=== PATIENT | male | born 1985 | race Caucasian/White ===

== ENCOUNTER 2016-07-14 17:34 | Emergency (ER) | payer OTHER ==
--- NOTE | 2016-07-14 18:14 | ED CLINICAL REPORT ---
Clinical Report - Physicians/Mid Levels [facility] [address] [place] [address] 07/14/2016 17:37 Patient: JAILENE HUDSON Time Seen: 17:39 Jul 14 2016. Arrived- By private vehicle. Historian- patient. HISTORY OF PRESENT ILLNESS Chief Complaint: FLANK PAIN. 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 The patient has had nausea. No vomiting or diarrhea. (flank pain over the last 2 days, with hematuria , history of similar with nephrolithiasis in the past. Has outpatient CT ordered, hearing pain. Patient drove himself here, does not her right arm. Taking motrin at home, not relieving his pain. No prior required procedures for nephrolithiasis. No diarrhea. NO trauma. NO sob/ chest pain/ cough, no recent illness. No fevers.). Similar symptoms previously: REVIEW OF SYSTEMS No constipation, black stools, hematemesis, difficulty with urination or pain with urination. No urinary frequency, fever, headache or sore throat. All systems otherwise negative, except as recorded above. PAST HISTORY Problems: Back Pain. Nephrolithiasis. Additional Surgeries: Appendectomy. Medications: Ibuprofen Oral. Flexaril. Allergies: Demerol. SOCIAL HISTORY Alcohol use. History of drug use: marijuana. ADDITIONAL NOTES The nursing notes have been reviewed. PHYSICAL EXAM Vital Signs: 07/14/2016 17:56 BP: 143/81. HR: 135. RR: 18. O2 saturation: 99%. Temp: 98.2 F. Appearance: Alert. Appears to be in pain. Patient in mild distress. Eyes: Eyes normal inspection. ENT: Ears normal. Nose normal. Pharynx normal. CVS: Tachycardia. Heart sounds normal. Respiratory: No respiratory distress. Breath sounds normal. No decreased air movement. Abdomen: Soft and nontender. No mass. No abdominal tenderness. Back: Normal inspection. No CVA tenderness. Skin: Skin warm. Neuro: Oriented X 3. LABS, X-RAYS, AND EKG Laboratory Tests: UA-Culture if indicated: (MARC: 07/14/2016 17:55) ( MsgRcvd 07/14/2016 18:07) Final results Test Result Flag Units (Reference) URINE COLOR JAKE URINE APPEARANCE CLOUDY URINE GLUCOSE NEGATIVE (NEGATIVE) URINE BILIRUBIN ICTOTEST NEGATIVE (NEGATIVE) URINE KETONE TRACE (NEGATIVE) URINE SPECIFIC GRAVITY 1.025 (1.010-1.030) URINE PH 5.5 (5.0-8.0) URINE PROTEIN TRACE (NEGATIVE) URINE UROBILINOGEN 0.2 EU/dL (0.2-1.0) URINE NITRITE NEGATIVE (NEGATIVE) URINE BLOOD 3+ (NEGATIVE) URINE LEUK ESTERASE NEGATIVE (NEGATIVE) URINE RBC 25-50 rbc/hpf (0-1) URINE WBC RARE wbc/hpf (0-1) URINE EPITHELIAL CELLS RARE EPI/hpf (0-5) URINE BACTERIA NONE SEEN (NONE SEEN) URINE COMMENT CULT NOT INDICATED URINE CULTURES ARE SET-UP BASED ON THE FOLLOWING CRITERIA:POSITIVE NITRITEPOSITIVE LEUKOCYTE ESTERASEGREATER THAN 10 WHITE BLOOD CELLSMODERATE (2+) OR GREATER BACTERIA CBC w Diff: (MARC: 07/14/2016 17:55) ( [facility] 07/14/[place] 18:03) Final results Test Result Flag Units (Reference) WHITE BLOOD COUNT 8.8 K/uL (4.5-11.5) RED BLOOD COUNT 5.33 M/uL (4.50-5.90) HEMOGLOBIN 15.6 gm/dL (13.5-17.5) HEMATOCRIT 47.1 % (41.0-53.0) MEAN CELL VOLUME 88 fL (80-100) MEAN CORPUSCULAR HGB 29 pg (26-34) MEAN CORPUSCULAR HGB CONC 33 g/dL (31-37) RED CELL DISTRIBUTION WIDTH 14.2 % (11.6-14.8) PLATELET COUNT 325 K/uL (150-400) NEUTROPHIL % 69.5 % (50-75) LYMPH % 21.5 L % (25-40) MONO % 6.3 % (3-14) EOSINOPHIL % 2.4 % (0-4) BASOPHIL % 0.3 % (0-2) BMP: (MARC: 07/14/2016 17:55) ( [facility] 07/14/2016 18:09) Final results Test Result Flag Units (Reference) GLUCOSE 99 mg/dL (70-110) BUN 15 mg/dL (7-18) CREATININE 0.9 mg/dL (0.6-1.3) Estimated GFR >60 mL/min Estimated GFR- >60 mL/min Note: Persistent reduction over 3 months in eGFR<60 mL/min/1.73 m2 defines CKD. Patients with eGFR values>=60 mL/min/1.73 m2 may also have CKD if evidence ofpersistent proteinuria. Additional information may be foundat www.kidney.org. SODIUM 144 mmol/L (136-145) POTASSIUM 3.7 mmol/L (3.5-5.1) CHLORIDE 107 mmol/L (98-107) CARBON DIOXIDE 26 mmol/L (21-32) CALCIUM 9.0 mg/dL (8.5-10.1) . PROGRESS AND PROCEDURES Course of Care: 115 hr after iv toradol 30 mg Pt with no signs of pyelo/ no signs of septic stone. Offered ct he would prefer to keep his ct appt for the , and frank good f/u. Does desire pain meds, which seems appropriate in this patient, given acute hematuria w/ ho similar. abd soft, non tender. Good renal function. Pt does admit to drinking significant amts of monster drinks daily. Patient is stable. Symptoms better. Patient/family counseled. Differential Diagnosis: I considered gastric etiology, gastritis, acute appendicitis, mesenteric lymphadenitis, diverticulitis, small bowel obstruction, intraabdominal abscess, ascites, urinary tract infection, cystitis, prostatitis and urinary obstruction as a possible cause of abdominal pain in this patient. This is a partial list of diagnoses considered. Disposition: Discharged. CLINICAL IMPRESSION Right renal colic with calculus with hematuria. Hypertension. INSTRUCTIONS Drink plenty of fluids. Prescription Medications: Zofran (orally disintegrating tablets) 4 mg: take 1 orally every 6 hours for 3 days as needed for nausea. Dispense fifteen (15). No refill. Substitution is permissible. Percocet 5 mg/325 mg: take 1 tablet orally every 6 hours as needed for pain. Dispense twenty-five (25). No refill. Substitution is permissible. Flomax 0.4 mg: take 1 orally every 24 hours. Dispense fifteen (15). No refills. Substitution is permissible. Follow-up: Follow up with a specialist. (Electronically signed by Kenyatta Forde P.A.-C 07/14/2016 18:35)
--- NOTE | 2016-07-14 18:14 | ED NURSING NOTES ---
Clinical Report - Nurses [facility] [address] [place] [address] 07/14/2016 17:37 Patient: JAILENE HUDSON TRIAGE Triage time 1745. Acuity: LEVEL 3. Chief Complaint: URINARY RETENTION, TESTICULAR PAIN and (r flank pain). Alert. No acute distress. (in pain). --17:59 Christina Melendez 17:56 07/14/16. BP: 143/81. HR: 135. RR: 18. O2 saturation: 99%. Temp: 98.2 F. Pain level now 8/10. --17:59 Christina Melendez. Weight: 95.2 kg. Height/Length: 67 inches. BMI: 32.9. --17:55 Christina Melendez. Medications Flexaril. --17:57 Christina Melendez Ibuprofen Oral. --17:57 Christina Melendez. Allergies Demerol. --17:57 Christina Melendez. History Arrived by private vehicle. Historian: patient. Onset. (2 days ago). 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 SOCIAL HX: Occasional alcohol use. History of drug use: marijuana. --17:59 Christina Melendez. PROBLEMS: Back Pain. Nephrolithiasis. --17:58 Christina Melendez. ADDITIONAL SURGERIES: Appendectomy. --17:58 Christina Melendez. Interventions ID band on patient. To treatment room. --17:59 Christina Melendez. PHYSICAL ASSESSMENT Ambulatory to room. Patient gowned. GENERAL / NEURO / PSYCH: Alert. Oriented X 4. Appears in pain. HEENT: Mucous membranes are pink. RESPIRATORY: Respirations not labored. Breath sounds within normal limits. CVS: Cardiac rhythm: sinus tachycardia. Capillary refill less than 2 seconds. GI / : Abdomen soft and nontender. Bowel sounds within normal limits. SKIN: Skin is warm and dry. --18:00 Christina Melendez. NURSING PROGRESS NOTES 18:00 07/14/2016 Site #1 started via IV in the right antecubital space with an 20g angiocath, with aseptic technique and good blood return; one attempt. Blood drawn: rainbow set. Labeled in the presence of the patient and sent to the lab. Saline lock flushed with 10 mL saline. --18:00 Christina Melendez 18:17 07/14/2016 Toradol IVP 30 mg given. via site #1. Allergies verified and confirmed 5 rights. IV patency established. IV site checked: no pain, redness, or swelling. IV flushed thoroughly pre- and post-medication administration. IVP given by RN. --18:17 Christina Melendez 18:31 07/14/16. BP: 127/75. HR: 111. RR: 18. O2 saturation: 96%. Pain level now 6/10. --18:32 Christina Melendez. DISPOSITION / DISCHARGE 18:40 07/14/2016 Site #1 removed upon discharge. Pressure dressing applied. --18:40 Christina Melendez Departure time: 1840. Condition at departure: improved and stable. No learning barriers present. Discharge instructions provided and reviewed with the patient. Reviewed medication(s). Patient verbalized understanding. Written instructions provided in Italian. The patient was discharged by the physician retirement assistant. He was discharged home. He left the Emergency Department ambulatory and via private vehicle. Patient driving. --18:41 Christina Melendez. Locked/Released at 07/14/2016 18:42 by Christina Melendez,
--- NOTE | 2016-07-14 18:14 | ED ORDER SUMMARY ---
..... Patient: JAILENE HUDSON OrderSheet [facility] VisitID: [id number] [address] [place] [address] 31y, M Registration Date/Time: 07/14/2016 ORDER SHEET Weight: 95.2 kg Allergies: Demerol GENERAL ORDERS: UA-Culture if indicated Urgent (17:49 07/14/2016 EKoroleva P.A.-C) (Ack 17:59 LTapper) (18:01 EBonham) CBC w Diff Urgent (17:55 07/14/2016 EKoroleva P.A.-C) (Ack 17:59 LTapper) (18:01 EBonham) BMP Urgent (17:55 07/14/2016 EKoroleva P.A.-C) (Ack 17:59 [facility]) ([facility] Vitals (18:15 07/14/2016 EKoroleva P.A.-C) (18:[facility] MEDICATION ORDERS: IV FLUIDS: Toradol IV 30 mg (NOW) (17:55 07/14/2016 EKoroleva P.A.-C) (18:[facility] IV Saline Lock (17:55 07/14/2016 EKoroleva P.A.-C) (18:00 [facility] ORDER SHEET NOTES: [Electronically signed by Kenyatta FordeAMegha-Mary (18:35 07/14/2016)] [Electronically signed by Christina Melendez (18:42 07/14/2016)] [Electronically locked/signed by Christina Melendez (18:42 07/14/2016)]
--- NOTE | 2016-07-14 18:14 | ED CLINICAL REPORT ---
Clinical Report - Physicians/Mid Levels [facility] [address] [place] [address] 07/14/2016 17:37 Patient: JAILENE HUDSON Time Seen: 17:39 Jul 14 2016. Arrived- By private vehicle. Historian- patient. HISTORY OF PRESENT ILLNESS Chief Complaint: FLANK PAIN. 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 The patient has had nausea. No vomiting or diarrhea. (flank pain over the last 2 days, with hematuria , history of similar with nephrolithiasis in the past. Has outpatient CT ordered, hearing pain. Patient drove himself here, does not her right arm. Taking motrin at home, not relieving his pain. No prior required procedures for nephrolithiasis. No diarrhea. NO trauma. NO sob/ chest pain/ cough, no recent illness. No fevers.). Similar symptoms previously: REVIEW OF SYSTEMS No constipation, black stools, hematemesis, difficulty with urination or pain with urination. No urinary frequency, fever, headache or sore throat. All systems otherwise negative, except as recorded above. PAST HISTORY Problems: Back Pain. Nephrolithiasis. Additional Surgeries: Appendectomy. Medications: Ibuprofen Oral. Flexaril. Allergies: Demerol. SOCIAL HISTORY Alcohol use. History of drug use: marijuana. ADDITIONAL NOTES The nursing notes have been reviewed. PHYSICAL EXAM Vital Signs: 07/14/2016 17:56 BP: 143/81. HR: 135. RR: 18. O2 saturation: 99%. Temp: 98.2 F. Appearance: Alert. Appears to be in pain. Patient in mild distress. Eyes: Eyes normal inspection. ENT: Ears normal. Nose normal. Pharynx normal. CVS: Tachycardia. Heart sounds normal. Respiratory: No respiratory distress. Breath sounds normal. No decreased air movement. Abdomen: Soft and nontender. No mass. No abdominal tenderness. Back: Normal inspection. No CVA tenderness. Skin: Skin warm. Neuro: Oriented X 3. LABS, X-RAYS, AND EKG Laboratory Tests: UA-Culture if indicated: (MARC: 07/14/2016 17:55) ( MsgRcvd 07/14/2016 18:07) Final results Test Result Flag Units (Reference) URINE COLOR JAKE URINE APPEARANCE CLOUDY URINE GLUCOSE NEGATIVE (NEGATIVE) URINE BILIRUBIN ICTOTEST NEGATIVE (NEGATIVE) URINE KETONE TRACE (NEGATIVE) URINE SPECIFIC GRAVITY 1.025 (1.010-1.030) URINE PH 5.5 (5.0-8.0) URINE PROTEIN TRACE (NEGATIVE) URINE UROBILINOGEN 0.2 EU/dL (0.2-1.0) URINE NITRITE NEGATIVE (NEGATIVE) URINE BLOOD 3+ (NEGATIVE) URINE LEUK ESTERASE NEGATIVE (NEGATIVE) URINE RBC 25-50 rbc/hpf (0-1) URINE WBC RARE wbc/hpf (0-1) URINE EPITHELIAL CELLS RARE EPI/hpf (0-5) URINE BACTERIA NONE SEEN (NONE SEEN) URINE COMMENT CULT NOT INDICATED URINE CULTURES ARE SET-UP BASED ON THE FOLLOWING CRITERIA:POSITIVE NITRITEPOSITIVE LEUKOCYTE ESTERASEGREATER THAN 10 WHITE BLOOD CELLSMODERATE (2+) OR GREATER BACTERIA CBC w Diff: (MARC: 07/14/2016 17:55) ( [facility] [place] [place] 18:03) Final results Test Result Flag Units (Reference) WHITE BLOOD COUNT 8.8 K/uL (4.5-11.5) RED BLOOD COUNT 5.33 M/uL (4.50-5.90) HEMOGLOBIN 15.6 gm/dL (13.5-17.5) HEMATOCRIT 47.1 % (41.0-53.0) MEAN CELL VOLUME 88 fL (80-100) MEAN CORPUSCULAR HGB 29 pg (26-34) MEAN CORPUSCULAR HGB CONC 33 g/dL (31-37) RED CELL DISTRIBUTION WIDTH 14.2 % (11.6-14.8) PLATELET COUNT 325 K/uL (150-400) NEUTROPHIL % 69.5 % (50-75) LYMPH % 21.5 L % (25-40) MONO % 6.3 % (3-14) EOSINOPHIL % 2.4 % (0-4) BASOPHIL % 0.3 % (0-2) BMP: (MARC: 07/14/2016 17:55) ( [facility] 07/14/2016 18:09) Final results Test Result Flag Units (Reference) GLUCOSE 99 mg/dL (70-110) BUN 15 mg/dL (7-18) CREATININE 0.9 mg/dL (0.6-1.3) Estimated GFR >60 mL/min Estimated GFR- >60 mL/min Note: Persistent reduction over 3 months in eGFR<60 mL/min/1.73 m2 defines CKD. Patients with eGFR values>=60 mL/min/1.73 m2 may also have CKD if evidence ofpersistent proteinuria. Additional information may be foundat www.kidney.org. SODIUM 144 mmol/L (136-145) POTASSIUM 3.7 mmol/L (3.5-5.1) CHLORIDE 107 mmol/L (98-107) CARBON DIOXIDE 26 mmol/L (21-32) CALCIUM 9.0 mg/dL (8.5-10.1) . PROGRESS AND PROCEDURES Course of Care: 115 hr after iv toradol 30 mg Pt with no signs of pyelo/ no signs of septic stone. Offered ct he would prefer to keep his ct appt for the , and frank good f/u. Does desire pain meds, which seems appropriate in this patient, given acute hematuria w/ ho similar. abd soft, non tender. Good renal function. Pt does admit to drinking significant amts of monster drinks daily. Patient is stable. Symptoms better. Patient/family counseled. Differential Diagnosis: I considered gastric etiology, gastritis, acute appendicitis, mesenteric lymphadenitis, diverticulitis, small bowel obstruction, intraabdominal abscess, ascites, urinary tract infection, cystitis, prostatitis and urinary obstruction as a possible cause of abdominal pain in this patient. This is a partial list of diagnoses considered. Disposition: Discharged. CLINICAL IMPRESSION Right renal colic with calculus with hematuria. Hypertension. INSTRUCTIONS Drink plenty of fluids. Prescription Medications: Zofran (orally disintegrating tablets) 4 mg: take 1 orally every 6 hours for 3 days as needed for nausea. Dispense fifteen (15). No refill. Substitution is permissible. Percocet 5 mg/325 mg: take 1 tablet orally every 6 hours as needed for pain. Dispense twenty-five (25). No refill. Substitution is permissible. Flomax 0.4 mg: take 1 orally every 24 hours. Dispense fifteen (15). No refills. Substitution is permissible. Follow-up: Follow up with a specialist. (Electronically signed by Kenyatta Forde P.A.-C 07/14/2016 18:35)
--- NOTE | 2016-07-14 18:14 | ED ORDER SUMMARY ---
..... Patient: JAILENE HUDSON OrderSheet [facility] VisitID: [id number] [address] [place] [address] 31y, M Registration Date/Time: 07/14/2016 ORDER SHEET Weight: 95.2 kg Allergies: Demerol GENERAL ORDERS: UA-Culture if indicated Urgent (17:49 07/14/2016 EKoroleva P.A.-C) (Ack 17:59 LTapper) (18:01 EBonham) CBC w Diff Urgent (17:55 07/14/2016 EKoroleva P.A.-C) (Ack 17:59 LTapper) (18:01 EBonham) BMP Urgent (17:55 07/14/2016 EKoroleva P.A.-C) (Ack 17:59 LTapper) ([facility] Vitals (18:15 07/14/2016 EKoroleva P.A.-C) (18:18 [facility] MEDICATION ORDERS: IV FLUIDS: Toradol IV 30 mg (NOW) (17:55 07/14/2016 EKoroleva P.A.-C) ([facility] IV Saline Lock (17:55 07/14/2016 EKoroleva P.A.-C) (18:00 [facility] ORDER SHEET NOTES: [Electronically signed by Kenyatta FordeAMegha-Mary (18:35 07/14/2016)] [Electronically signed by Christina Melendez (18:42 07/14/2016)] [Electronically locked/signed by Christina Melendez (18:42 07/14/2016)]
--- NOTE | 2016-07-14 18:14 | ED NURSING NOTES ---
Clinical Report - Nurses [facility] [address] [place] [address] 07/14/2016 17:37 Patient: JAILENE HUDSON TRIAGE Triage time 1745. Acuity: LEVEL 3. Chief Complaint: URINARY RETENTION, TESTICULAR PAIN and (r flank pain). Alert. No acute distress. (in pain). --17:59 Christina Melendez 17:56 07/14/16. BP: 143/81. HR: 135. RR: 18. O2 saturation: 99%. Temp: 98.2 F. Pain level now 8/10. --17:59 Christina Melendez. Weight: 95.2 kg. Height/Length: 67 inches. BMI: 32.9. --17:55 Christina Melendez. Medications Flexaril. --17:57 Christina Melendez Ibuprofen Oral. --17:57 Christina Melendez. Allergies Demerol. --17:57 Christina Melendez. History Arrived by private vehicle. Historian: patient. Onset. (2 days ago). 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 SOCIAL HX: Occasional alcohol use. History of drug use: marijuana. --17:59 Christina Melendez. PROBLEMS: Back Pain. Nephrolithiasis. --17:58 Christina Melendez. ADDITIONAL SURGERIES: Appendectomy. --17:58 Christina Melendez. Interventions ID band on patient. To treatment room. --17:59 Christina Melendez. PHYSICAL ASSESSMENT Ambulatory to room. Patient gowned. GENERAL / NEURO / PSYCH: Alert. Oriented X 4. Appears in pain. HEENT: Mucous membranes are pink. RESPIRATORY: Respirations not labored. Breath sounds within normal limits. CVS: Cardiac rhythm: sinus tachycardia. Capillary refill less than 2 seconds. GI / : Abdomen soft and nontender. Bowel sounds within normal limits. SKIN: Skin is warm and dry. --18:00 Christina Melendez. NURSING PROGRESS NOTES 18:00 07/14/2016 Site #1 started via IV in the right antecubital space with an 20g angiocath, with aseptic technique and good blood return; one attempt. Blood drawn: rainbow set. Labeled in the presence of the patient and sent to the lab. Saline lock flushed with 10 mL saline. --18:00 Christina Melendez 18:17 07/14/2016 Toradol IVP 30 mg given. via site #1. Allergies verified and confirmed 5 rights. IV patency established. IV site checked: no pain, redness, or swelling. IV flushed thoroughly pre- and post-medication administration. IVP given by RN. --18:17 Christina Melendez 18:31 07/14/16. BP: 127/75. HR: 111. RR: 18. O2 saturation: 96%. Pain level now 6/10. --18:32 Christina Melendez. DISPOSITION / DISCHARGE 18:40 07/14/2016 Site #1 removed upon discharge. Pressure dressing applied. --18:40 Christina Melendez Departure time: 1840. Condition at departure: improved and stable. No learning barriers present. Discharge instructions provided and reviewed with the patient. Reviewed medication(s). Patient verbalized understanding. Written instructions provided in Yoruba. The patient was discharged by the physician urology physician assistant. He was discharged home. He left the Emergency Department ambulatory and via private vehicle. Patient driving. --18:41 Christina Melendez. Locked/Released at 07/14/2016 18:42 by Christina Melendez,
--- NOTE | 2016-07-14 18:42 | ED MED RECONCILIATION SUMMARY ---
Patient: JAILENE HUDSON Medication Reconciliation Report [facility] VisitID: [id number] [address] [place] [address] 31y, M Registration Date/Time: 07/14/2016 Weight: 95.2 kg Height/Length: 67 in. BMI: 32.9 ALLERGIES: Demerol The patient's Home Medications are listed below: THE FOLLOWING MEDICATIONS NEED TO BE RECONCILED: Flexaril Ibuprofen Oral The source(s) of the original Home Medication information: Not obtained. The following Medications were given to the patient in the Emergency Department: Toradol [IVP] IVP 30 mg, administered: 07/14/2016 6:17:00 PM The following Medications were prescribed to the patient: Zofran (orally disintegrating tablets) 4 mg: take 1 orally every 6 hours for 3 days as needed for nausea. Dispense fifteen (15). No refill. Substitution is permissible. -- Kenyatta Forde, P.A.-C Percocet 5 mg/325 mg: take 1 tablet orally every 6 hours as needed for pain. Dispense twenty-five (25). No refill. Substitution is permissible. -- Kenyatta Forde, P.A.-C Flomax 0.4 mg: take 1 orally every 24 hours. Dispense fifteen (15). No refills. Substitution is permissible. -- Kenyatta Forde, P.A.-C
--- NOTE | 2016-07-14 18:42 | ED MAR SUMMARY ---
..... Medication Administration Record [facility] [address] [place] [address] Patient: JAILENE HUDSON Visit ID: [id number] 31y, M Weight: 95.2 kg Height/Length: 67 in BMI: 32.9 ALLERGIES: Demerol Given 18:17 07/14/2016 Christina Melendez, Medication Administered: TORADOL [IVP], Dose: 30 mg IVP, Site: #1 right AC. Medication Ordered: Toradol IV 30 mg (NOW).
--- NOTE | 2016-07-14 18:42 | ED MED RECONCILIATION SUMMARY ---
Patient: JAILENE HUDSON Medication Reconciliation Report [facility] VisitID: [id number] [address] [place] [address] 31y, M Registration Date/Time: 07/14/2016 Weight: 95.2 kg Height/Length: 67 in. BMI: 32.9 ALLERGIES: Demerol The patient's Home Medications are listed below: THE FOLLOWING MEDICATIONS NEED TO BE RECONCILED: Flexaril Ibuprofen Oral The source(s) of the original Home Medication information: Not obtained. The following Medications were given to the patient in the Emergency Department: Toradol [IVP] IVP 30 mg, administered: 07/14/2016 6:17:00 PM The following Medications were prescribed to the patient: Zofran (orally disintegrating tablets) 4 mg: take 1 orally every 6 hours for 3 days as needed for nausea. Dispense fifteen (15). No refill. Substitution is permissible. -- Kenyatta Forde, P.A.-C Percocet 5 mg/325 mg: take 1 tablet orally every 6 hours as needed for pain. Dispense twenty-five (25). No refill. Substitution is permissible. -- Kenyatta Forde, P.A.-C Flomax 0.4 mg: take 1 orally every 24 hours. Dispense fifteen (15). No refills. Substitution is permissible. -- Kenyatta Forde, P.A.-C
--- NOTE | 2016-07-14 18:42 | ED MAR SUMMARY ---
..... Medication Administration Record [facility] [address] [place] [place] [address] Patient: JAILENE HUDSON Visit ID: [id number] 31y, M Weight: 95.2 kg Height/Length: 67 in BMI: 32.9 ALLERGIES: Demerol Given 18:17 07/14/2016 Christina Melendez, Medication Administered: TORADOL [IVP], Dose: 30 mg IVP, Site: #1 right AC. Medication Ordered: Toradol IV 30 mg (NOW).
--- NOTE | 2016-07-14 18:42 | ED DISCHARGE INSTRUCTIONS ---
Patient: JAILENE HUDSON General Instructions [facility] VisitID: [id number] [address] [place] [address] 31y, M Registration Date/Time: 07/14/2016 Right renal colic with calculus with hematuria. Hypertension. INSTRUCTIONS Drink plenty of fluids. Prescription Medications: Zofran (orally disintegrating tablets) 4 mg: take 1 orally every 6 hours for 3 days as needed for nausea. Dispense fifteen (15). No refill. Substitution is permissible. Percocet 5 mg/325 mg: take 1 tablet orally every 6 hours as needed for pain. Dispense twenty-five (25). No refill. Substitution is permissible. Flomax 0.4 mg: take 1 orally every 24 hours. Dispense fifteen (15). No refills. Substitution is permissible. Follow-up: Follow up with a specialist. ADDITIONAL INFORMATION Kidney Stone (W/ Colic) The sharp cramping pain and nausea/vomiting that you have is due to a small stone which has formed in the kidney and is now passing down a narrow tube (ureter) on its way to your bladder. Once it reaches your bladder, the pain will stop. The stone may pass in your urine stream in one piece. [The size may be 1/16" to 1/4" (1-6mm)]. Or, the stone may also break up into maida fragments which you may not even notice. Once you have had a kidney stone, you are at risk for developing another one in the future. Home Care: Drink plenty of fluids (at least 8 to 10 glasses of water a day). Most stones will pass on their own, but may take from a few hours to a few days. Sometimes the stone is too large to pass by itself and special methods will have to be used to remove the stone. Each time you urinate, do so in a jar. Pour the urine from the jar through the strainer and into the toilet. Continue doing this until 24 hours after your pain stops. By then, if there was a kidney stone, it should pass from your bladder. Some stones dissolve into sand-like particles and pass right through the strainer. In that case, you wont ever see a stone. Save any stone that you find in the strainer and bring it to your doctor for analysis. It may be possible to prevent certain types of stones from forming. Therefore, it is important to know what kind of stone you have. Try to stay as active as possible since this will help the stone pass. Do not stay in bed unless your pain prevents you from getting up. You may notice a red, pink or brown color to your urine. This is normal while passing a kidney stone. Follow Up with your doctor or return to this facility if the pain lasts more than 48 hours. Get Prompt Medical Attention if any of the following occur: Pain that is not controlled by the medicine given Repeated vomiting or unable to keep down fluids Weakness, dizziness or fainting Fever of 100.4F (38C) or higher, or as directed by your healthcare provider Passage of solid red or brown urine (can't see through it) or urine with lots of blood clots Unable to pass urine for 8 hours and increasing bladder pressure Ondansetron Hydrochloride Oral tablet What is this medicine? ONDANSETRON (on WANG se gary) is used to treat nausea and vomiting caused by chemotherapy. It is also used to prevent or treat nausea and vomiting after surgery. How should I use this medicine? Take this medicine by mouth with a glass of water. Follow the directions on your prescription label. Take your doses at regular intervals. Do not take your medicine more often than directed. Talk to your civil engineering designer regarding the use of this medicine in children. Special care may be needed. What side effects may I notice from receiving this medicine? Side effects that you should report to your doctor or health behavioral health care manager as soon as possible: allergic reactions like skin rash, itching or hives, swelling of the face, lips or tongue breathing problems dizziness fast or irregular heartbeat feeling faint or lightheaded, falls fever and chills swelling of the hands or feet tightness in the chest Side effects that usually do not require medical attention (report to your doctor or health behavioral health care manager if they continue or are bothersome): constipation or diarrhea headache What may interact with this medicine? Do not take this medicine with any of the following medications: -apomorphine -cisapride -dofetilide -dronedarone -pimozide -thioridazine -ziprasidone This medicine may also interact with the following medications: -carbamazepine -phenytoin -rifampicin -tramadol -other medicines that prolong the QT interval (cause an abnormal heart rhythm) What if I miss a dose? If you miss a dose, take it as soon as you can. If it is almost time for your next dose, take only that dose. Do not take double or extra doses. Where should I keep my medicine? Keep out of the reach of children. Store between 2 and 30 degrees C (36 and 86 degrees F). Throw away any unused medicine after the expiration date. What should I tell my health care provider before I take this medicine? They need to know if you have any of these conditions: heart disease history of irregular heartbeat liver disease low levels of magnesium or potassium in the blood an unusual or allergic reaction to ondansetron, granisetron, other medicines, foods, dyes, or preservatives or trying to get breast-feeding What should I watch for while using this medicine? Check with your doctor or health behavioral health care manager right away if you have any sign of an allergic reaction. Oxycodone Hydrochloride, Acetaminophen Oral tablet What is this medicine? ACETAMINOPHEN; OXYCODONE (a set a JACK lauren fen; ox i KOE done) is a pain reliever. It is used to treat mild to moderate pain. How should I use this medicine? Take this medicine by mouth with a full glass of water. Follow the directions on the prescription label. Take your medicine at regular intervals. Do not take your medicine more often than directed. Talk to your civil engineering designer regarding the use of this medicine in children. Special care may be needed. Patients over 65 years old may have a stronger reaction and need a smaller dose. What side effects may I notice from receiving this medicine? Side effects that you should report to your doctor or health behavioral health care manager as soon as possible: allergic reactions like skin rash, itching or hives, swelling of the face, lips, or tongue breathing difficulties, wheezing confusion light headedness or fainting spells severe stomach pain yellowing of the skin or the whites of the eyes Side effects that usually do not require medical attention (report to your doctor or health behavioral health care manager if they continue or are bothersome): dizziness drowsiness nausea vomiting What may interact with this medicine? alcohol antihistamines barbiturates like amobarbital, butalbital, butabarbital, methohexital, pentobarbital, phenobarbital, thiopental, and secobarbital benztropine drugs for bladder problems like solifenacin, trospium, oxybutynin, tolterodine, hyoscyamine, and methscopolamine drugs for breathing problems like ipratropium and tiotropium drugs for certain stomach or intestine problems like propantheline, homatropine methylbromide, glycopyrrolate, atropine, belladonna, and dicyclomine general anesthetics like etomidate, ketamine, nitrous oxide, propofol, desflurane, enflurane, halothane, isoflurane, and sevoflurane medicines for depression, anxiety, or psychotic disturbances medicines for sleep muscle relaxants naltrexone narcotic medicines (opiates) for pain phenothiazines like perphenazine, thioridazine, chlorpromazine, mesoridazine, fluphenazine, prochlorperazine, promazine, and trifluoperazine scopolamine tramadol trihexyphenidyl What if I miss a dose? If you miss a dose, take it as soon as you can. If it is almost time for your next dose, take only that dose. Do not take double or extra doses. Where should I keep my medicine? Keep out of the reach of children. This medicine can be abused. Keep your medicine in a safe place to protect it from theft. Do not share this medicine with anyone. Selling or giving away this medicine is dangerous and against the law. Store at room temperature between 20 and 25 degrees C (68 and 77 degrees F). Keep container tightly closed. Protect from light. This medicine may cause accidental overdose and if it is taken by other adults, children, or pets. Flush any unused medicine down the toilet to reduce the chance of harm. Do not use the medicine after the expiration date. What should I tell my health care provider before I take this medicine? They need to know if you have any of these conditions: brain tumor Crohn's disease, inflammatory bowel disease, or ulcerative colitis drink more than 3 alcohol containing drinks per day drug abuse or addiction head injury heart or circulation problems kidney disease or problems going to the bathroom liver disease lung disease, asthma, or breathing problems an unusual or allergic reaction to acetaminophen, oxycodone, other opioid analgesics, other medicines, foods, dyes, or preservatives or trying to get breast-feeding What should I watch for while using this medicine? Tell your doctor or health behavioral health care manager if your pain does not go away, if it gets worse, or if you have new or a different type of pain. You may develop tolerance to the medicine. Tolerance means that you will need a higher dose of the medication for pain relief. Tolerance is normal and is expected if you take this medicine for a long time. Do not suddenly stop taking your medicine because you may develop a severe reaction. Your body becomes used to the medicine. This does NOT mean you are addicted. Addiction is a behavior related to getting and using a drug for a non-medical reason. If you have pain, you have a medical reason to take pain medicine. Your doctor will tell you how much medicine to take. If your doctor wants you to stop the medicine, the dose will be slowly lowered over time to avoid any side effects. You may get drowsy or dizzy. Do not drive, use machinery, or do anything that needs mental alertness until you know how this medicine affects you. Do not stand or sit up quickly, especially if you are an older patient. This reduces the risk of dizzy or fainting spells. Alcohol may interfere with the effect of this medicine. Avoid alcoholic drinks. There are different types of narcotic medicines (opiates) for pain. If you take more than one type at the same time, you may have more side effects. Give your health care provider a list of all medicines you use. Your doctor will tell you how much medicine to take. Do not take more medicine than directed. Call emergency for help if you have problems breathing. The medicine will cause constipation. Try to have a bowel movement at least every 2 to 3 days. If you do not have a bowel movement for 3 days, call your doctor or health behavioral health care manager. Do not take Tylenol (acetaminophen) or medicines that have acetaminophen with this medicine. Too much acetaminophen can be very dangerous. Many nonprescription medicines contain acetaminophen. Always read the labels carefully to avoid taking more acetaminophen. You have been given the following additional information: Kidney Stone W/ Colic Ondansetron Hydrochloride Oral tablet Oxycodone Hydrochloride, Acetaminophen Oral tablet (Electronically signed by Kenyatta Forde P.A.-C 07/14/2016 18:35)
== END 2016-07-14 18:40 | disposition home or self-care (01) ==
LOC: ED SRH 17:34 → EDBD 17:36 → ED SRH 17:36
DX: N20.0 Calculus of kidney (principal); N23 Unspecified renal colic; R31.9 Hematuria, unspecified; I10 Essential (primary) hypertension; Z88.5 Allergy status to narcotic agent
CPT/HCPCS: 90004; 90047; 95059

== ENCOUNTER 2016-10-03 17:47 | Emergency (ER) | payer OTHER ==
--- NOTE | 2016-10-03 19:01 | ED CLINICAL REPORT ---
Clinical Report - Physicians/Mid Levels [facility] [address] [place] [address] 10/03/2016 17:59 Patient: JAILENE HUDSON Time Seen: 1813Apr 2016. Arrived- By private vehicle. Historian- patient. HISTORY OF PRESENT ILLNESS Chief Complaint: FLANK PAIN. This started today and is still present. The problem is described as moderate. No penile discharge, discomfort with urination, urinary frequency or genital lesion. Able to void. (She reports is her nephrolithiasis, reports right flank pain over the last day. Denies any urgency or frequency. At times pain radiates to his testicle. He has had some nausea, no emesis. History of similar. Reports no prior history of requiring procedures for his nephrolithiasis usually pass on their own, with assistance of pain medication, Flomax. He should take Motrin prior to arrival.). REVIEW OF SYSTEMS No fever, chills or abdominal pain. He has had flank pain. The patient has had hematuria. All systems otherwise negative, except as recorded above. PAST HISTORY Problems: Hypertension. Renal Colic. Back Pain. Nephrolithiasis. Additional Surgeries: Appendectomy. Ear drum reconstruction Right. Medications: Methocarbamol Oral. Ibuprofen Oral. Allergies: Demerol. SOCIAL HISTORY Smoker- current status unknown. Alcohol use. No drug use. ADDITIONAL NOTES The nursing notes have been reviewed. PHYSICAL EXAM Vital Signs: 10/03/2016 18:07 BP: 154/91. HR: 107. RR: 18. O2 saturation: 98%. Temp: 97.5 F. Pain level now: 10/10. Appearance: Alert. No acute distress. ENT: Normal external inspection. Pharynx normal. Neck: Neck supple. CVS: Heart sounds normal. Respiratory: No respiratory distress. Breath sounds normal. Abdomen: Soft and nontender. No organomegaly. No mass. No abdominal tenderness or organomegaly. The bowel sounds are not abnormal. Back: No CVA tenderness. : Testes descended. Tenderness (at r. testicle, no swelling, no cord/ epdidymis swelling). (Chaperoned exam with RN.). Neuro: Oriented X 3. LABS, X-RAYS, AND EKG Laboratory Tests: UA-Culture if indicated: (MARC: 10/03/2016 18:17) ( MsgRcvd 10/03/2016 18:39) Final results Test Result Flag Units (Reference) URINE COLOR RED URINE APPEARANCE CLOUDY URINE GLUCOSE NEGATIVE (NEGATIVE) URINE BILIRUBIN NEGATIVE (NEGATIVE) URINE KETONE NEGATIVE (NEGATIVE) URINE SPECIFIC GRAVITY 1.020 (1.010-1.030) URINE PH 7.5 (5.0-8.0) URINE PROTEIN TRACE (NEGATIVE) URINE UROBILINOGEN 0.2 EU/dL (0.2-1.0) URINE NITRITE NEGATIVE (NEGATIVE) URINE BLOOD 3+ (NEGATIVE) URINE LEUK ESTERASE NEGATIVE (NEGATIVE) URINE RBC >100 rbc/hpf (0-1) URINE WBC 0-1 wbc/hpf (0-1) URINE EPITHELIAL CELLS RARE EPI/hpf (0-5) URINE BACTERIA NONE SEEN (NONE SEEN) URINE COMMENT CULT NOT INDICATED URINE CULTURES ARE SET-UP BASED ON THE FOLLOWING CRITERIA:POSITIVE NITRITEPOSITIVE LEUKOCYTE ESTERASEGREATER THAN 10 WHITE BLOOD CELLSMODERATE (2+) OR GREATER BACTERIA . PROGRESS AND PROCEDURES Course of Care: Nonreproducible pain for patient. No distress in the ER, wishes to go home and drive himself. Surgeries, history of the same, patient is very familiar with his nephrolithiasis. No signs of acute pyloric. Patient to follow up outpatient as needed. 10/03/2016 19:15 BP: 145/87. HR: 78. RR: 14. O2 saturation: 100%. Temp: 98 F. Pain level now: 7/10. Patient is stable. Symptoms better. Patient/family counseled. Disposition: Discharged. CLINICAL IMPRESSION Right nephrolithiasis with renal colic. INSTRUCTIONS Drink plenty of fluids. Prescription Medications: Zofran (orally disintegrating tablets) 4 mg: every 6 hours for 3 days. Dispense fifteen (15). No refill. Substitution is permissible. Percocet 5 mg/325 mg: take 1 tablet orally every 6 hours as needed for pain. Dispense twenty-five (25). No refill. Substitution is permissible. Flomax 0.4 mg: every 24 hours. Dispense ten (10). No refills. Substitution is permissible. (next dose 10/04 night) Follow-up: Follow up with a urologist. (Electronically signed by Kenyatta Forde P.A.-C 10/03/2016 22:36)
--- NOTE | 2016-10-03 19:01 | ED NURSING NOTES ---
Clinical Report - Nurses [facility] [address] [place] [address] 10/03/2016 17:59 Patient: JAILENE HUDSON TRIAGE Triage time 1808 PM. Acuity: LEVEL 3. Chief Complaint: PAIN WITH URINATION and TESTICULAR PAIN. Alert. No acute distress. SVETLANA COMA SCORE: [place] Coma Scale: 15- eyes open spontaneously (4); best verbal response- oriented x 4 (5); best motor response- obeys commands (6). --18:19 Keyona Nicolas R.N. 18:07 10/03/16. BP: 154/91 (regular adult cuff) taken on the left arm, while sitting. HR: 107. RR: 18. O2 saturation: 98%. Temp: 97.5 F (oral). Pain level now: 03/21. --18:19 Keyona Nicolas R.N. Weight: 102 kg stated. Height/Length: 67 inches Per Patient. BMI: 35.3. --18:08 Keyona Nicolas R.N. Medications Ibuprofen Oral. --18:10 Keyona Nicolas R.N. Methocarbamol Oral. --18:15 Keyona Nicolas R.N. The following entry was struck by Keyona Nicolas R.N., 18:15 (10/03/16) Reason - other. <<STRICKEN ENTRY-- Flexaril. --18:10 Keyona Nicolas R.N. --END STRIKE>>. Allergies Demerol. --18:10 Keyona Nicolas R.N. Medication/allergy information source: the patient. --18:19 Keyona Nicolas R.N. History Arrived by private vehicle. Primary physician (Dr. Umesh Mcadams). ( Pt states on Monday morning when he urinated it burn, pt has a hx of kidney stones in the past. Has had difficulty and hurts upon urinating and noted to have "pink urine". Denies fevers, n/v). Onset. (monday). He has had testicular pain, and urgency of urination. No fever or inguinal swelling. Able to void. 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 PAST MEDICAL HX: Immunizations: up-to-date. SOCIAL HX: Current every day heavy tobacco smoker (cigarette)- less than 1 pack per day. Alcohol use. No drug use. No infectious disease exposure. ABUSE ASSESSMENT: No report of abuse. SELF HARM ASSESSMENT: A self harm assessment was performed. The patient answered "no" to the question "Do you have thoughts of harming or killing yourself?" and "Have you recently had thoughts about harming or killing others?". FALL RISK ASSESSMENT: Fall risk assessment completed. No fall risk identified. NUTRITIONAL RISK ASSESSMENT: The nutritional risk assessment revealed no deficiencies. FUNCTIONAL ASSESSMENT: Functional assessment: no impairments noted. LEARNING NEEDS ASSESSMENT: The learning needs assessment revealed no barriers. SKIN INTEGRITY ASSESSMENT: Skin integrity risk assessment completed. No skin integrity risk identified. --18:19 Keyona Nicolas R.N. PROBLEMS: Hypertension. Renal Colic. Back Pain. Nephrolithiasis. --18:10 Keyona Nicolas R.N. ADDITIONAL SURGERIES: Appendectomy. --18:10 Keyona Nicolas R.N. Ear drum reconstruction Right. --18:16 Keyona Nicolas R.N. Interventions ID band on patient. --18:19 Keyona Nicolas R.N. PHYSICAL ASSESSMENT Ambulatory to room. GENERAL / NEURO / PSYCH: Alert. Oriented X 4. HEENT: Mucous membranes are pink. RESPIRATORY: Respirations not labored. Breath sounds within normal limits. GI / : Abdomen soft. Bowel sounds within normal limits. No abdominal distention. Pain with urination. He has had frequency of urination. SKIN: Skin is warm and dry. --18:19 Keyona Nicolas R.N. NURSING PROGRESS NOTES The initial plan of care for this patient has been created This plan of care was discussed with the patient. Patient gowned. Warming measures: blanket applied. Reassurance given. Patient identifiers checked. Call light placed in reach. Side rails up x 1. Bed placed in lowest position. Brakes of bed on. Patient ready for evaluation- PA notified. --18:20 Keyona Nicolas R.N. 18:27 10/03/2016 Tylenol (Acetaminophen) PO Capsules 1000 mg given. Allergies verified and confirmed 5 rights. --18:27 Keyona Nicolas R.N. 18:27 10/03/2016 Zofran ODT (Ondansetron) PO Tablets 8 mg given. Allergies verified and confirmed 5 rights. --18:27 Keyona Nicolas R.N. 18:28 10/03/2016 Flomax (Tamsulosin HCl) PO Tablets 0.4 mg given. Allergies verified and confirmed 5 rights. --18:28 Keyona Nicolas R.N. 18:35 10/03/16. Hospital Product Specialist provided for the genital exam by the physician. --18:35 Addison Emmanuel R.N. 19:00 10/03/2016 Tylenol PO Response: no adverse reaction. --19:22 Keyona Nicolas R.N. 19:00 10/03/2016 Zofran ODT PO Response: no adverse reaction. --19:22 Keyona Nicolas R.N. 19:00 10/03/2016 Flomax PO Response: no adverse reaction. --19:23 Keyona Nicolas R.N. DISPOSITION / DISCHARGE Departure time: 1924 PM. Condition at departure: stable. The goals identified in the patient's plan of care were met. No learning barriers present. Discharge instructions provided and reviewed with the patient. Reviewed medication(s) side effects, precautions, dosing and course information. Prescription(s) given to the patient. Activity restrictions (light lifting) reviewed. Patient verbalized understanding. Written instructions provided in Kazakh. ( Pt given strainer and instructions for urine/stones. Verbalizes understanding on follow-up and prescription.). The patient was discharged by the physician housing assistant. He was discharged home and unaccompanied at time of discharge. He left the Emergency Department ambulatory and via private vehicle. Patient driving. FALL RISK ASSESSMENT: Fall risk assessment completed. No fall risk identified. --19:22 Keyona Nicolas R.N. 19:15 10/03/16. BP: 145/87. HR: 78. RR: 14. O2 saturation: 100% on room air. Temp: 98 F (oral). Pain level now: 12/19. --19:22 Keyona Nicolas R.N. Locked/Released at 10/03/2016 19:23 by Keyona Nicolas R.N.
--- NOTE | 2016-10-03 19:01 | ED NURSING NOTES ---
Clinical Report - Nurses Formerly [facility] [address] [place] [address] 10/03/2016 17:59 Patient: JAILENE HUDSON TRIAGE Triage time 1808 PM. Acuity: LEVEL 3. Chief Complaint: PAIN WITH URINATION and TESTICULAR PAIN. Alert. No acute distress. SVETLANA COMA SCORE: Brewster Coma Scale: 15- eyes open spontaneously (4); best verbal response- oriented x 4 (5); best motor response- obeys commands (6). --18:19 Keyona Nicolas R.N. 18:07 10/03/16. BP: 154/91 (regular adult cuff) taken on the left arm, while sitting. HR: 107. RR: 18. O2 saturation: 98%. Temp: 97.5 F (oral). Pain level now: 03/21. --18:19 Keyona Nicolas R.N. Weight: 102 kg stated. Height/Length: 67 inches Per Patient. BMI: 35.3. --18:08 Keyona Nicolas R.N. Medications Ibuprofen Oral. --18:10 Keyona Nicolas R.N. Methocarbamol Oral. --18:15 Keyona Nicolas R.N. The following entry was struck by Keyona Nicolas R.N., 18:15 (10/03/16) Reason - other. <<STRICKEN ENTRY-- Flexaril. --18:10 Keyona Nicolas R.N. --END STRIKE>>. Allergies Demerol. --18:10 Keyona Nicolas R.N. Medication/allergy information source: the patient. --18:19 Keyona Nicolas R.N. History Arrived by private vehicle. Primary physician (Dr. Umesh Mcadams). ( Pt states on Monday morning when he urinated it burn, pt has a hx of kidney stones in the past. Has had difficulty and hurts upon urinating and noted to have "pink urine". Denies fevers, n/v). Onset. (monday). He has had testicular pain, and urgency of urination. No fever or inguinal swelling. Able to void. 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 PAST MEDICAL HX: Immunizations: up-to-date. SOCIAL HX: Current every day heavy tobacco smoker (cigarette)- less than 1 pack per day. Alcohol use. No drug use. No infectious disease exposure. ABUSE ASSESSMENT: No report of abuse. SELF HARM ASSESSMENT: A self harm assessment was performed. The patient answered "no" to the question "Do you have thoughts of harming or killing yourself?" and "Have you recently had thoughts about harming or killing others?". FALL RISK ASSESSMENT: Fall risk assessment completed. No fall risk identified. NUTRITIONAL RISK ASSESSMENT: The nutritional risk assessment revealed no deficiencies. FUNCTIONAL ASSESSMENT: Functional assessment: no impairments noted. LEARNING NEEDS ASSESSMENT: The learning needs assessment revealed no barriers. SKIN INTEGRITY ASSESSMENT: Skin integrity risk assessment completed. No skin integrity risk identified. --18:19 Keyona Nicolas R.N. PROBLEMS: Hypertension. Renal Colic. Back Pain. Nephrolithiasis. --18:10 Keyona Nicolas R.N. ADDITIONAL SURGERIES: Appendectomy. --18:10 Keyona Nicolas R.N. Ear drum reconstruction Right. --18:16 Keyona Nicolas R.N. Interventions ID band on patient. --18:19 Keyona Nicolas R.N. PHYSICAL ASSESSMENT Ambulatory to room. GENERAL / NEURO / PSYCH: Alert. Oriented X 4. HEENT: Mucous membranes are pink. RESPIRATORY: Respirations not labored. Breath sounds within normal limits. GI / : Abdomen soft. Bowel sounds within normal limits. No abdominal distention. Pain with urination. He has had frequency of urination. SKIN: Skin is warm and dry. --18:19 Keyona Nicolas R.N. NURSING PROGRESS NOTES The initial plan of care for this patient has been created This plan of care was discussed with the patient. Patient gowned. Warming measures: blanket applied. Reassurance given. Patient identifiers checked. Call light placed in reach. Side rails up x 1. Bed placed in lowest position. Brakes of bed on. Patient ready for evaluation- PA notified. --18:20 Keyona Nicolas R.N. 18:27 10/03/2016 Tylenol (Acetaminophen) PO Capsules 1000 mg given. Allergies verified and confirmed 5 rights. --18:27 Keyona Nicolas R.N. 18:27 10/03/2016 Zofran ODT (Ondansetron) PO Tablets 8 mg given. Allergies verified and confirmed 5 rights. --18:27 Keyona Nicolas R.N. 18:28 10/03/2016 Flomax (Tamsulosin HCl) PO Tablets 0.4 mg given. Allergies verified and confirmed 5 rights. --18:28 Keyona Nicolas R.N. 18:35 10/03/16. Bag Shop Worker provided for the genital exam by the physician. --18:35 Addison Emmaunel R.N. 19:00 10/03/2016 Tylenol PO Response: no adverse reaction. --19:22 Keyona Nicolas R.N. 19:00 10/03/2016 Zofran ODT PO Response: no adverse reaction. --19:22 Keyona Nicolas R.N. 19:00 10/03/2016 Flomax PO Response: no adverse reaction. --19:23 Keyona Nicolas R.N. DISPOSITION / DISCHARGE Departure time: 1924 PM. Condition at departure: stable. The goals identified in the patient's plan of care were met. No learning barriers present. Discharge instructions provided and reviewed with the patient. Reviewed medication(s) side effects, precautions, dosing and course information. Prescription(s) given to the patient. Activity restrictions (light lifting) reviewed. Patient verbalized understanding. Written instructions provided in Italian. ( Pt given strainer and instructions for urine/stones. Verbalizes understanding on follow-up and prescription.). The patient was discharged by the physician assistant executive housekeeper. He was discharged home and unaccompanied at time of discharge. He left the Emergency Department ambulatory and via private vehicle. Patient driving. FALL RISK ASSESSMENT: Fall risk assessment completed. No fall risk identified. --19:22 Keyona Nicolas R.N. 19:15 10/03/16. BP: 145/87. HR: 78. RR: 14. O2 saturation: 100% on room air. Temp: 98 F (oral). Pain level now: 12/19. --19:22 Keyona Nicolas R.N. Locked/Released at 10/03/2016 19:23 by Keyona Nicolas R.N.
--- NOTE | 2016-10-03 19:01 | ED ORDER SUMMARY ---
..... Patient: JAILENE HUDSON OrderSheet [facility] VisitID: [id number] [address] [place] [address] 31y, M Registration Date/Time: 10/03/2016 ORDER SHEET Weight: 102.0 kg (stated) Allergies: Demerol GENERAL ORDERS: UA-Culture if indicated Urgent (18:13 10/03/2016 EKoroleva P.A.-C) (Ack 18:18 Toña) (18:20 EHassan R.N.) MEDICATION ORDERS: Tylenol PO 1,000 mg (NOW) (18:12 10/03/2016 EKoroleva P.A.-C) (18:27 EHassan R.N.) Zofran ODT PO 8 mg (NOW) (18:12 10/03/2016 EKoroleva P.A.-C) (18:27 EHassan R.N.) Flomax PO 0.4 mg (Do not crush or chew, NOW) (18:12 10/03/2016 EKoroleva P.A.-C) (18:28 EHassan R.N.) IV FLUIDS: ORDER SHEET NOTES: [Electronically signed by Keyona Nicolas R.N. (19:23 10/03/2016)] [Electronically signed by Kenyatta Forde P.A.-C (22:36 10/03/2016)] [Electronically locked/signed by Keyona Nicolas R.N. (19:23 10/03/2016)]
--- NOTE | 2016-10-03 19:01 | ED ORDER SUMMARY ---
..... Patient: JAILENE HUDSON OrderSheet [facility] VisitID: [id number] [address] [place] [address] 31y, M Registration Date/Time: 10/03/2016 ORDER SHEET Weight: 102.0 kg (stated) Allergies: Demerol GENERAL ORDERS: UA-Culture if indicated Urgent (18:13 10/03/2016 EKoroleva P.A.-C) (Ack 18:18 Toña) (18:20 EHassan R.N.) MEDICATION ORDERS: Tylenol PO 1,000 mg (NOW) (18:12 10/03/2016 EKoroleva P.A.-C) (18:27 EHassan R.N.) Zofran ODT PO 8 mg (NOW) (18:12 10/03/2016 EKoroleva P.A.-C) (18:27 EHassan R.N.) Flomax PO 0.4 mg (Do not crush or chew, NOW) (18:12 10/03/2016 EKoroleva P.A.-C) (18:28 EHassan R.N.) IV FLUIDS: ORDER SHEET NOTES: [Electronically signed by Keyona Nicolas R.N. (19:23 10/03/2016)] [Electronically signed by Kenyatta Forde P.A.-C (22:36 10/03/2016)] [Electronically locked/signed by Keyona Nicolas R.N. (19:23 10/03/2016)]
--- NOTE | 2016-10-03 22:36 | ED DISCHARGE INSTRUCTIONS ---
Patient: JAILENE HUDSON General Instructions [facility] VisitID: [id number] [place] [address] 31y, M Registration Date/Time: 10/03/2016 Right nephrolithiasis with renal colic. INSTRUCTIONS Drink plenty of fluids. Prescription Medications: Zofran (orally disintegrating tablets) 4 mg: every 6 hours for 3 days. Dispense fifteen (15). No refill. Substitution is permissible. Percocet 5 mg/325 mg: take 1 tablet orally every 6 hours as needed for pain. Dispense twenty-five (25). No refill. Substitution is permissible. Flomax 0.4 mg: every 24 hours. Dispense ten (10). No refills. Substitution is permissible. (next dose 10/04 night) Follow-up: Follow up with a urologist. ADDITIONAL INFORMATION Kidney Stone (W/ Colic) The sharp cramping pain and nausea/vomiting that you have is due to a small stone which has formed in the kidney and is now passing down a narrow tube (ureter) on its way to your bladder. Once it reaches your bladder, the pain will stop. The stone may pass in your urine stream in one piece. [The size may be 1/16" to 1/4" (1-6mm)]. Or, the stone may also break up into maida fragments which you may not even notice. Once you have had a kidney stone, you are at risk for developing another one in the future. Home Care: Drink plenty of fluids (at least 8 to 10 glasses of water a day). Most stones will pass on their own, but may take from a few hours to a few days. Sometimes the stone is too large to pass by itself and special methods will have to be used to remove the stone. Each time you urinate, do so in a jar. Pour the urine from the jar through the strainer and into the toilet. Continue doing this until 24 hours after your pain stops. By then, if there was a kidney stone, it should pass from your bladder. Some stones dissolve into sand-like particles and pass right through the strainer. In that case, you wont ever see a stone. Save any stone that you find in the strainer and bring it to your doctor for analysis. It may be possible to prevent certain types of stones from forming. Therefore, it is important to know what kind of stone you have. Try to stay as active as possible since this will help the stone pass. Do not stay in bed unless your pain prevents you from getting up. You may notice a red, pink or brown color to your urine. This is normal while passing a kidney stone. Follow Up with your doctor or return to this facility if the pain lasts more than 48 hours. Get Prompt Medical Attention if any of the following occur: Pain that is not controlled by the medicine given Repeated vomiting or unable to keep down fluids Weakness, dizziness or fainting Fever of 100.4F (38C) or higher, or as directed by your healthcare provider Passage of solid red or brown urine (can't see through it) or urine with lots of blood clots Unable to pass urine for 8 hours and increasing bladder pressure Blood In The Urine Blood in the urine ("hematuria") has many possible causes. If it occurs after an injury (such as a car accident or fall), it is most often a sign of bruising to the kidney or bladder. Common medical causes of blood in the urine include urinary tract infection, kidney stone, inflammation, tumors, or certain other diseases of the kidney or bladder. Menstruation can cause blood to appear in the urine sample, although it is not coming from the urinary tract. If only a trace amount of blood is present, it will show up on the urine test, even though the urine may be yellow and not pink or red. This may occur with any of the above conditions, as well as heavy exercise or high fever. In this case, your doctor may want to repeat the urine test on another day. This will show if the blood is still present. If so, then other tests can be done to find out the cause. Home Care: If your urine does not appear bloody (pink, brown or red) then you do not need to restrict your activity in any way. If you can see blood in your urine, rest and avoid heavy exertion until your next exam. Do not use aspirin or anti-inflammatory medicine like ibuprofen (Motrin, Advil) or naproxen (Naprosyn, Aleve). These thin the blood and may increase bleeding. Follow Up with your doctor or as advised by our staff. If you were injured and had blood in your urine, you should have a repeat urine test in 1-2 days. Contact your doctor or return to this facility for this test. [NOTE: A radiologist will review any X-rays that were taken. We will notify you of any new findings that may affect your care.] Get Prompt Medical Attention if any of the following occur: Bright red blood or blood clots in the urine (if a new symptom) Weakness, dizziness or fainting New groin, abdominal or back pain Fever of 100.4F (38C) or higher, or as directed by your healthcare provider Repeated vomiting Bleeding from nose, gums or easy bruising Ondansetron Hydrochloride Oral tablet What is this medicine? ONDANSETRON (on WANG se gary) is used to treat nausea and vomiting caused by chemotherapy. It is also used to prevent or treat nausea and vomiting after surgery. How should I use this medicine? Take this medicine by mouth with a glass of water. Follow the directions on your prescription label. Take your doses at regular intervals. Do not take your medicine more often than directed. Talk to your legislators regarding the use of this medicine in children. Special care may be needed. What side effects may I notice from receiving this medicine? Side effects that you should report to your doctor or health care administrative tech as soon as possible: allergic reactions like skin rash, itching or hives, swelling of the face, lips or tongue breathing problems dizziness fast or irregular heartbeat feeling faint or lightheaded, falls fever and chills swelling of the hands or feet tightness in the chest Side effects that usually do not require medical attention (report to your doctor or health care administrative tech if they continue or are bothersome): constipation or diarrhea headache What may interact with this medicine? Do not take this medicine with any of the following medications: -apomorphine -cisapride -dofetilide -dronedarone -pimozide -thioridazine -ziprasidone This medicine may also interact with the following medications: -carbamazepine -phenytoin -rifampicin -tramadol -other medicines that prolong the QT interval (cause an abnormal heart rhythm) What if I miss a dose? If you miss a dose, take it as soon as you can. If it is almost time for your next dose, take only that dose. Do not take double or extra doses. Where should I keep my medicine? Keep out of the reach of children. Store between 2 and 30 degrees C (36 and 86 degrees F). Throw away any unused medicine after the expiration date. What should I tell my health care provider before I take this medicine? They need to know if you have any of these conditions: heart disease history of irregular heartbeat liver disease low levels of magnesium or potassium in the blood an unusual or allergic reaction to ondansetron, granisetron, other medicines, foods, dyes, or preservatives or trying to get breast-feeding What should I watch for while using this medicine? Check with your doctor or health care administrative tech right away if you have any sign of an allergic reaction. Oxycodone Hydrochloride, Acetaminophen Oral tablet What is this medicine? ACETAMINOPHEN; OXYCODONE (a set a JACK lauren fen; ox i KOE done) is a pain reliever. It is used to treat mild to moderate pain. How should I use this medicine? Take this medicine by mouth with a full glass of water. Follow the directions on the prescription label. Take your medicine at regular intervals. Do not take your medicine more often than directed. Talk to your legislators regarding the use of this medicine in children. Special care may be needed. Patients over 65 years old may have a stronger reaction and need a smaller dose. What side effects may I notice from receiving this medicine? Side effects that you should report to your doctor or health care administrative tech as soon as possible: allergic reactions like skin rash, itching or hives, swelling of the face, lips, or tongue breathing difficulties, wheezing confusion light headedness or fainting spells severe stomach pain yellowing of the skin or the whites of the eyes Side effects that usually do not require medical attention (report to your doctor or health care administrative tech if they continue or are bothersome): dizziness drowsiness nausea vomiting What may interact with this medicine? alcohol antihistamines barbiturates like amobarbital, butalbital, butabarbital, methohexital, pentobarbital, phenobarbital, thiopental, and secobarbital benztropine drugs for bladder problems like solifenacin, trospium, oxybutynin, tolterodine, hyoscyamine, and methscopolamine drugs for breathing problems like ipratropium and tiotropium drugs for certain stomach or intestine problems like propantheline, homatropine methylbromide, glycopyrrolate, atropine, belladonna, and dicyclomine general anesthetics like etomidate, ketamine, nitrous oxide, propofol, desflurane, enflurane, halothane, isoflurane, and sevoflurane medicines for depression, anxiety, or psychotic disturbances medicines for sleep muscle relaxants naltrexone narcotic medicines (opiates) for pain phenothiazines like perphenazine, thioridazine, chlorpromazine, mesoridazine, fluphenazine, prochlorperazine, promazine, and trifluoperazine scopolamine tramadol trihexyphenidyl What if I miss a dose? If you miss a dose, take it as soon as you can. If it is almost time for your next dose, take only that dose. Do not take double or extra doses. Where should I keep my medicine? Keep out of the reach of children. This medicine can be abused. Keep your medicine in a safe place to protect it from theft. Do not share this medicine with anyone. Selling or giving away this medicine is dangerous and against the law. Store at room temperature between 20 and 25 degrees C (68 and 77 degrees F). Keep container tightly closed. Protect from light. This medicine may cause accidental overdose and if it is taken by other adults, children, or pets. Flush any unused medicine down the toilet to reduce the chance of harm. Do not use the medicine after the expiration date. What should I tell my health care provider before I take this medicine? They need to know if you have any of these conditions: brain tumor Crohn's disease, inflammatory bowel disease, or ulcerative colitis drink more than 3 alcohol containing drinks per day drug abuse or addiction head injury heart or circulation problems kidney disease or problems going to the bathroom liver disease lung disease, asthma, or breathing problems an unusual or allergic reaction to acetaminophen, oxycodone, other opioid analgesics, other medicines, foods, dyes, or preservatives or trying to get breast-feeding What should I watch for while using this medicine? Tell your doctor or health care administrative tech if your pain does not go away, if it gets worse, or if you have new or a different type of pain. You may develop tolerance to the medicine. Tolerance means that you will need a higher dose of the medication for pain relief. Tolerance is normal and is expected if you take this medicine for a long time. Do not suddenly stop taking your medicine because you may develop a severe reaction. Your body becomes used to the medicine. This does NOT mean you are addicted. Addiction is a behavior related to getting and using a drug for a non-medical reason. If you have pain, you have a medical reason to take pain medicine. Your doctor will tell you how much medicine to take. If your doctor wants you to stop the medicine, the dose will be slowly lowered over time to avoid any side effects. You may get drowsy or dizzy. Do not drive, use machinery, or do anything that needs mental alertness until you know how this medicine affects you. Do not stand or sit up quickly, especially if you are an older patient. This reduces the risk of dizzy or fainting spells. Alcohol may interfere with the effect of this medicine. Avoid alcoholic drinks. There are different types of narcotic medicines (opiates) for pain. If you take more than one type at the same time, you may have more side effects. Give your health care provider a list of all medicines you use. Your doctor will tell you how much medicine to take. Do not take more medicine than directed. Call emergency for help if you have problems breathing. The medicine will cause constipation. Try to have a bowel movement at least every 2 to 3 days. If you do not have a bowel movement for 3 days, call your doctor or health care administrative tech. Do not take Tylenol (acetaminophen) or medicines that have acetaminophen with this medicine. Too much acetaminophen can be very dangerous. Many nonprescription medicines contain acetaminophen. Always read the labels carefully to avoid taking more acetaminophen. You have been given the following additional information: Kidney Stone W/ Colic Hematuria Ondansetron Hydrochloride Oral tablet Oxycodone Hydrochloride, Acetaminophen Oral tablet (Electronically signed by Kenyatta Forde P.A.-C 10/03/2016 22:36)
--- NOTE | 2016-10-03 22:37 | ED MAR SUMMARY ---
..... Medication Administration Record [facility] [address] [place] [address] Patient: JAILENE HUDSON Visit ID: [id number] 31y, M Weight: 102.0 kg Height/Length: 67 in BMI: 35.3 ALLERGIES: Demerol Given 18:10/03/2016 Keyona Nicolas, RMeghaN. Medication Administered: TYLENOL [PO] (ACETAMINOPHEN), Dose: 1000 mg Capsules PO. Medication Ordered: Tylenol PO 1,000 mg (NOW). Given 18:10/03/2016 Keyona Nicolas, R.N. Medication Administered: ZOFRAN ODT [PO] (ONDANSETRON), Dose: 8 mg Tablets PO. Medication Ordered: Zofran ODT PO 8 mg (NOW). Given 18:10/03/2016 Keyona Nicolas, R.N. Medication Administered: FLOMAX [PO] (TAMSULOSIN HCL), Dose: 0.4 mg Tablets PO. Medication Ordered: Flomax PO 0.4 mg (Do not crush or chew, NOW).
--- NOTE | 2016-10-03 22:37 | ED MED RECONCILIATION SUMMARY ---
Patient: JAILENE HUDSON Medication Reconciliation Report [facility] VisitID: [id number] [address] [place] [address] 31y, M Registration Date/Time: 10/03/2016 Weight: 102.0 kg Height/Length: 67 in. BMI: 35.3 ALLERGIES: Demerol The patient's Home Medications are listed below: THE FOLLOWING MEDICATIONS NEED TO BE RECONCILED: Ibuprofen Oral Methocarbamol Oral The source(s) of the original Home Medication information: patient The following Medications were given to the patient in the Emergency Department: Tylenol [PO] PO 1000 mg, administered: 10/03/2016 6:27:00 PM Zofran ODT [PO] PO 8 mg, administered: 10/03/2016 6:27:00 PM Flomax [PO] PO 0.4 mg, administered: 10/03/2016 6:28:00 PM The following Medications were prescribed to the patient: Zofran (orally disintegrating tablets) 4 mg: every 6 hours for 3 days. Dispense fifteen (15). No refill. Substitution is permissible. -- Ivelisseolezakiya, Kenyatta, P.A.-C Percocet 5 mg/325 mg: take 1 tablet orally every 6 hours as needed for pain. Dispense twenty-five (25). No refill. Substitution is permissible. -- Kenyatta Forde, P.A.-C Flomax 0.4 mg: every 24 hours. Dispense ten (10). No refills. Substitution is permissible.(next dose 10/04 night) -- Eula, Kenyatta, P.A.-C
--- NOTE | 2016-10-03 22:37 | ED MAR SUMMARY ---
..... Medication Administration Record [facility] [address] [place] [address] Patient: JAILENE HUDSON Visit ID: [id number] 31y, M Weight: 102.0 kg Height/Length: 67 in BMI: 35.3 ALLERGIES: Demerol Given 18:10/03/2016 Keyona Nicolas, RMeghaN. Medication Administered: TYLENOL [PO] (ACETAMINOPHEN), Dose: 1000 mg Capsules PO. Medication Ordered: Tylenol PO 1,000 mg (NOW). Given 18:10/03/2016 Keyona Nicolas, R.N. Medication Administered: ZOFRAN ODT [PO] (ONDANSETRON), Dose: 8 mg Tablets PO. Medication Ordered: Zofran ODT PO 8 mg (NOW). Given 18:10/03/2016 Keyona Nicolas, R.N. Medication Administered: FLOMAX [PO] (TAMSULOSIN HCL), Dose: 0.4 mg Tablets PO. Medication Ordered: Flomax PO 0.4 mg (Do not crush or chew, NOW).
--- NOTE | 2016-10-03 22:37 | ED MED RECONCILIATION SUMMARY ---
Patient: JAILENE HUDSON Medication Reconciliation Report [facility] VisitID: [id number] [address] [place] [address] 31y, M Registration Date/Time: 10/03/2016 Weight: 102.0 kg Height/Length: 67 in. BMI: 35.3 ALLERGIES: Demerol The patient's Home Medications are listed below: THE FOLLOWING MEDICATIONS NEED TO BE RECONCILED: Ibuprofen Oral Methocarbamol Oral The source(s) of the original Home Medication information: patient The following Medications were given to the patient in the Emergency Department: Tylenol [PO] PO 1000 mg, administered: 10/03/2016 6:27:00 PM Zofran ODT [PO] PO 8 mg, administered: 10/03/2016 6:27:00 PM Flomax [PO] PO 0.4 mg, administered: 10/03/2016 6:28:00 PM The following Medications were prescribed to the patient: Zofran (orally disintegrating tablets) 4 mg: every 6 hours for 3 days. Dispense fifteen (15). No refill. Substitution is permissible. -- Ivelisseolezakiya, Kenyatta, P.A.-C Percocet 5 mg/325 mg: take 1 tablet orally every 6 hours as needed for pain. Dispense twenty-five (25). No refill. Substitution is permissible. -- Kenyatta Forde, P.A.-C Flomax 0.4 mg: every 24 hours. Dispense ten (10). No refills. Substitution is permissible.(next dose 10/04 night) -- Eula, Kenyatta, P.A.-C
== END 2016-10-03 19:23 | disposition home or self-care (01) ==
LOC: ED SRH 17:47
DX: N20.0 Calculus of kidney (principal); I10 Essential (primary) hypertension; F17.210 Nicotine dependence, cigarettes, uncomplicated; Z88.5 Allergy status to narcotic agent
CPT/HCPCS: 90004

== ENCOUNTER 2016-11-06 10:36 | Emergency (ER) | payer OTHER ==
--- NOTE | 2016-11-06 12:37 | ED CLINICAL REPORT ---
Clinical Report - Physicians/Mid Levels [facility] [address] [place] [address] 11/06/2016 10:36 Patient: JAILENE HUDSON Time Seen: 11:17. Arrived- By private vehicle. Historian- patient. HISTORY OF PRESENT ILLNESS Chief Complaint: DENTAL PAIN. This started several months ago and is still present. It was gradual in onset and has been waxing/waning. Pain described as severe. The patient has had toothache (right lower molar, left lower molar). (He had a dental exam and was supposed to get some work done then lost his insurance. He recently got state insurance and went to the dentist and he states that he has to have surgery and has the referral but can't have consultation until December.). REVIEW OF SYSTEMS No chills, fever, sweats, calf pain or chest pain. No cough, difficulty breathing, pedal edema, palpitations or abdominal pain. No constipation, diarrhea, nausea, vomiting or urinary problems. All systems otherwise negative, except as recorded above. SOCIAL HISTORY Current every day light tobacco smoker (cigarette)- less than 1/2 a pack per day. Occasional alcohol use. No drug use. FAMILY HISTORY No significant family medical history. ADDITIONAL NOTES The nursing notes have been reviewed. PHYSICAL EXAM Vital Signs: 11/06/2016 10:59 BP: 138/95. HR: 100. RR: 18. O2 saturation: 100%. Temp: 98.2 F. Have been reviewed. Appearance: Alert. Eyes: Pupils equal, round and reactive to light. ENT: Moderate dental tenderness of multiple teeth (lower right molars, lower left molars). Ears normal. Pharynx normal. Lips normal. Uvula midline. Neck: Trachea midline. No adenopathy. Thyroid normal. Neck supple. CVS: Normal heart rate and rhythm. Heart sounds normal. Respiratory: No respiratory distress. Breath sounds normal. Abdomen: Soft and nontender. No organomegaly. Skin: Normal skin color. No rash. Normal skin turgor. Extremities: Extremities exhibit normal ROM. Neuro: No motor deficit. No sensory deficit. PROGRESS AND PROCEDURES Course of Care: Patient is stable. Old medical records reviewed. Disposition: Discharged. Condition: stable. CLINICAL IMPRESSION Dental pain with an impacted tooth. INSTRUCTIONS Drink plenty of fluids. Warnings: Further evaluation is necessary. GENERAL WARNINGS: Return or contact your physician immediately if your condition worsens or changes unexpectedly, if not improving as expected, or if other problems arise. Your Current Medications: STOP TAKING THE FOLLOWING MEDICATIONS: Ibuprofen Oral. CONTINUE TAKING THE FOLLOWING MEDICATIONS: Acetaminophen Extra Strength Oral. Tramadol HCL Oral. Prescription Medications: Toradol 10 mg tablets: Take 1 tablet orally every 6 hours as needed. Dispense fifteen (15). No refills. Substitution is permissible. Follow-up: Follow up with a dentist as scheduled. (Electronically signed by Chuy Ruvalcaba MD 11/14/2016 9:31)
--- NOTE | 2016-11-06 12:37 | ED NURSING NOTES ---
Clinical Report - Nurses [facility] [address] [place] [address] 11/06/2016 10:36 [id number] Triage time 10:59 Nov 06 2016. Acuity: LEVEL 4. Chief Complaint: RIGHT LOWER and LEFT LOWER TOOTHACHE. MAVERICK COMA SCORE: Maverick Coma Scale: 15- eyes open spontaneously (4); best verbal response- oriented x 4 (5); best motor response- obeys commands (6). --11:06 Olga Michael R.N. 10:59 11/06/16. BP: 138/95. HR: 100. RR: 18. O2 saturation: 100%. Temp: 98.2 F. Pain level now 7/10. --11:06 Olga Michael R.N. Weight: 98.4 kg stated. Height/Length: 67 inches Per Patient. BMI: 34. --11:05 Olga Michael R.N. Medications Ibuprofen Oral. --11:02 Olga Michael R.N. Tramadol HCL Oral. --11:02 Olga Michael R.N. Acetaminophen Extra Strength Oral. --11:03 Olga Michael R.N. Allergies Demerol. --11:03 Olga Michael R.N. History Arrived by private vehicle. Historian: patient. ( So had a dental exam and was supposed to get some work done then lost his insurance. He recently got state insurance and went to the dentist and he states that he has to have surgery and has the referral but can't have consultation until December.). He has a dental appointment scheduled. He has had ear pain. No fever, hoarseness, mouth sores, sinus pain or facial pain. He has had a toothache. No swollen jaw. PAST MEDICAL HX: Abscess. No history of dental caries. No history of strep throat or mononucleosis. Immunizations: up-to-date. SOCIAL HX: Current every day light tobacco smoker (cigarette)- less than 1/2 a pack per day. Occasional alcohol use. No drug use. SELF HARM ASSESSMENT: A self harm assessment was performed. The patient answered "no" to the question "Have you recently felt down, depressed, or hopeless?" and "Do you have thoughts of harming or killing yourself?". FALL RISK ASSESSMENT: Fall risk assessment completed. No fall risk identified. NUTRITIONAL RISK ASSESSMENT: The nutritional risk assessment revealed no deficiencies. FUNCTIONAL ASSESSMENT: Functional assessment: no impairments noted. LEARNING NEEDS ASSESSMENT: The learning needs assessment revealed no barriers. ABUSE ASSESSMENT: Abuse assessment: (yes) The patient was asked "Do you feel safe in your home?". SKIN INTEGRITY ASSESSMENT: Skin integrity risk assessment completed. No skin integrity risk identified. --11: Olga Michael R.N. PROBLEMS: Hypertension. Renal Colic. Back Pain. Nephrolithiasis. --11: Olga Michael R.N. ADDITIONAL SURGERIES: Appendectomy. Ear drum reconstruction Right. --11: Olga Michael R.N. Interventions ID band on patient. --11: Olga Michael R.N. PHYSICAL ASSESSMENT Ambulatory to room. GENERAL / NEURO / PSYCH: Alert. Oriented X 4. Appears in no acute distress. HEENT: Pupils equal, round and reactive to light. Pharynx within normal limits. Voice within normal limits. No dental injury noted. Dental tenderness. Dental decay. Mucous membranes are pink. RESPIRATORY: Respirations not labored. CVS: Capillary refill less than 2 seconds. SKIN: Skin is warm and dry. Normal skin turgor. --11: Olga Michael R.N. NURSING PROGRESS NOTES The initial plan of care for this patient includes an assessment with efforts to address patient positioning, appropriate ambient lighting and comfortable environmental temperature. Pulse oximeter and NIBP monitor placed on patient. Reassurance given. Call light placed in reach. Side rails up x 1. Bed placed in lowest position. Brakes of bed on. --11: Olga Michael R.N. DISPOSITION / DISCHARGE Departure time: 12:52 Nov 06 2016. Condition at departure: unchanged. No learning barriers present. Discharge instructions provided and reviewed with the patient. Reviewed warnings. Reviewed medication(s). Treatments reviewed. Reviewed referrals. Patient verbalized understanding. Written instructions provided in Icelandic. The patient was discharged home. He left the Emergency Department ambulatory and via private vehicle. Patient driving. --12:52 Olga Michael R.N. 12:51 11/06/16. BP: 136/82. HR: 90. RR: 18. O2 saturation: 100%. Temp: 98.6 F. Pain level now 9/10. --12:52 Olga Michael R.N. Locked/Released at 11/06/2016 16:27 by Olga Michael R.N.
--- NOTE | 2016-11-06 12:37 | ED NURSING NOTES ---
Clinical Report - Nurses [facility] [address] [place] [address] 11/06/2016 10:36 [id number] Triage time 10:59 Nov 06 2016. Acuity: LEVEL 4. Chief Complaint: RIGHT LOWER and LEFT LOWER TOOTHACHE. MAVERICK COMA SCORE: Maverick Coma Scale: 15- eyes open spontaneously (4); best verbal response- oriented x 4 (5); best motor response- obeys commands (6). --11:06 Olga Michael R.N. 10:59 11/06/16. BP: 138/95. HR: 100. RR: 18. O2 saturation: 100%. Temp: 98.2 F. Pain level now 7/10. --11:06 lOga Michael R.N. Weight: 98.4 kg stated. Height/Length: 67 inches Per Patient. BMI: 34. --11:05 Olga Michael R.N. Medications Ibuprofen Oral. --11:02 Olga Michael R.N. Tramadol HCL Oral. --11:02 Olga Michael R.N. Acetaminophen Extra Strength Oral. --11:03 Olga Michael R.N. Allergies Demerol. --11:03 Olga Michael R.N. History Arrived by private vehicle. Historian: patient. ( So had a dental exam and was supposed to get some work done then lost his insurance. He recently got state insurance and went to the dentist and he states that he has to have surgery and has the referral but can't have consultation until December.). He has a dental appointment scheduled. He has had ear pain. No fever, hoarseness, mouth sores, sinus pain or facial pain. He has had a toothache. No swollen jaw. PAST MEDICAL HX: Abscess. No history of dental caries. No history of strep throat or mononucleosis. Immunizations: up-to-date. SOCIAL HX: Current every day light tobacco smoker (cigarette)- less than 1/2 a pack per day. Occasional alcohol use. No drug use. SELF HARM ASSESSMENT: A self harm assessment was performed. The patient answered "no" to the question "Have you recently felt down, depressed, or hopeless?" and "Do you have thoughts of harming or killing yourself?". FALL RISK ASSESSMENT: Fall risk assessment completed. No fall risk identified. NUTRITIONAL RISK ASSESSMENT: The nutritional risk assessment revealed no deficiencies. FUNCTIONAL ASSESSMENT: Functional assessment: no impairments noted. LEARNING NEEDS ASSESSMENT: The learning needs assessment revealed no barriers. ABUSE ASSESSMENT: Abuse assessment: (yes) The patient was asked "Do you feel safe in your home?". SKIN INTEGRITY ASSESSMENT: Skin integrity risk assessment completed. No skin integrity risk identified. --11: Olga Michael R.N. PROBLEMS: Hypertension. Renal Colic. Back Pain. Nephrolithiasis. --11: Olga Michael R.N. ADDITIONAL SURGERIES: Appendectomy. Ear drum reconstruction Right. --11: Olga Michael R.N. Interventions ID band on patient. --11: Olga Michael R.N. PHYSICAL ASSESSMENT Ambulatory to room. GENERAL / NEURO / PSYCH: Alert. Oriented X 4. Appears in no acute distress. HEENT: Pupils equal, round and reactive to light. Pharynx within normal limits. Voice within normal limits. No dental injury noted. Dental tenderness. Dental decay. Mucous membranes are pink. RESPIRATORY: Respirations not labored. CVS: Capillary refill less than 2 seconds. SKIN: Skin is warm and dry. Normal skin turgor. --11: Olga Michael R.N. NURSING PROGRESS NOTES The initial plan of care for this patient includes an assessment with efforts to address patient positioning, appropriate ambient lighting and comfortable environmental temperature. Pulse oximeter and NIBP monitor placed on patient. Reassurance given. Call light placed in reach. Side rails up x 1. Bed placed in lowest position. Brakes of bed on. --11: Olga Michael R.N. DISPOSITION / DISCHARGE Departure time: 12:52 Nov 06 2016. Condition at departure: unchanged. No learning barriers present. Discharge instructions provided and reviewed with the patient. Reviewed warnings. Reviewed medication(s). Treatments reviewed. Reviewed referrals. Patient verbalized understanding. Written instructions provided in [place]. The patient was discharged home. He left the Emergency Department ambulatory and via private vehicle. Patient driving. --12:52 Olga Michael R.N. 12:51 11/06/16. BP: 136/82. HR: 90. RR: 18. O2 saturation: 100%. Temp: 98.6 F. Pain level now 9/10. --12:52 Olga Michael R.N. Locked/Released at 11/06/2016 16:27 by Olga Michael R.N.
--- NOTE | 2016-11-06 12:37 | ED CLINICAL REPORT ---
Clinical Report - Physicians/Mid Levels [facility] [address] [place] [address] 11/06/2016 10:36 Patient: JAILENE HUDSON Time Seen: 11:17. Arrived- By private vehicle. Historian- patient. HISTORY OF PRESENT ILLNESS Chief Complaint: DENTAL PAIN. This started several months ago and is still present. It was gradual in onset and has been waxing/waning. Pain described as severe. The patient has had toothache (right lower molar, left lower molar). (He had a dental exam and was supposed to get some work done then lost his insurance. He recently got state insurance and went to the dentist and he states that he has to have surgery and has the referral but can't have consultation until December.). REVIEW OF SYSTEMS No chills, fever, sweats, calf pain or chest pain. No cough, difficulty breathing, pedal edema, palpitations or abdominal pain. No constipation, diarrhea, nausea, vomiting or urinary problems. All systems otherwise negative, except as recorded above. SOCIAL HISTORY Current every day light tobacco smoker (cigarette)- less than 1/2 a pack per day. Occasional alcohol use. No drug use. FAMILY HISTORY No significant family medical history. ADDITIONAL NOTES The nursing notes have been reviewed. PHYSICAL EXAM Vital Signs: 11/06/2016 10:59 BP: 138/95. HR: 100. RR: 18. O2 saturation: 100%. Temp: 98.2 F. Have been reviewed. Appearance: Alert. Eyes: Pupils equal, round and reactive to light. ENT: Moderate dental tenderness of multiple teeth (lower right molars, lower left molars). Ears normal. Pharynx normal. Lips normal. Uvula midline. Neck: Trachea midline. No adenopathy. Thyroid normal. Neck supple. CVS: Normal heart rate and rhythm. Heart sounds normal. Respiratory: No respiratory distress. Breath sounds normal. Abdomen: Soft and nontender. No organomegaly. Skin: Normal skin color. No rash. Normal skin turgor. Extremities: Extremities exhibit normal ROM. Neuro: No motor deficit. No sensory deficit. PROGRESS AND PROCEDURES Course of Care: Patient is stable. Old medical records reviewed. Disposition: Discharged. Condition: stable. CLINICAL IMPRESSION Dental pain with an impacted tooth. INSTRUCTIONS Drink plenty of fluids. Warnings: Further evaluation is necessary. GENERAL WARNINGS: Return or contact your physician immediately if your condition worsens or changes unexpectedly, if not improving as expected, or if other problems arise. Your Current Medications: STOP TAKING THE FOLLOWING MEDICATIONS: Ibuprofen Oral. CONTINUE TAKING THE FOLLOWING MEDICATIONS: Acetaminophen Extra Strength Oral. Tramadol HCL Oral. Prescription Medications: Toradol 10 mg tablets: Take 1 tablet orally every 6 hours as needed. Dispense fifteen (15). No refills. Substitution is permissible. Follow-up: Follow up with a dentist as scheduled. (Electronically signed by Chuy Ruvalcaba MD 11/14/2016 9:31)
--- NOTE | 2016-11-14 09:32 | ED DISCHARGE INSTRUCTIONS ---
Patient: JAILENE HUDSON General Instructions [facility] VisitID: [id number] [place] [address] 31y, M Registration Date/Time: 11/06/2016 Dental pain with an impacted tooth. INSTRUCTIONS Drink plenty of fluids. Warnings: Further evaluation is necessary. GENERAL WARNINGS: Return or contact your physician immediately if your condition worsens or changes unexpectedly, if not improving as expected, or if other problems arise. Your Current Medications: STOP TAKING THE FOLLOWING MEDICATIONS: Ibuprofen Oral. CONTINUE TAKING THE FOLLOWING MEDICATIONS: Acetaminophen Extra Strength Oral. Tramadol HCL Oral. Prescription Medications: Toradol 10 mg tablets: Take 1 tablet orally every 6 hours as needed. Dispense fifteen (15). No refills. Substitution is permissible. Follow-up: Follow up with a dentist as scheduled. ADDITIONAL INFORMATION Dental Pain A crack or cavity in the tooth, which exposes the sensitive inner area of the tooth can cause tooth pain. An infection in the gum or the root of the tooth can cause pain and swelling. The pain is often made worse by drinking hot or cold fluids, or biting on hard foods. Pain may spread from the tooth to the ear or jaw on the same side. Home Care: Avoid hot and cold foods and liquids since your tooth may be sensitive to temperature changes. If your tooth is chipped or cracked, or if there is a large open cavity, apply OIL OF CLOVES (available [id number] in drug stores) directly to the tooth to reduce pain. Some pharmacies carry an [id number] "toothache kit." This contains a paste, which can be applied over the exposed tooth to decrease sensitivity. A cold pack on your jaw over the sore area may help reduce pain. You may use acetaminophen (Tylenol) or ibuprofen (Motrin, Advil) to control pain, unless another medicine was prescribed. [ NOTE: If you have chronic liver or kidney disease or ever had a stomach ulcer or GI bleeding, talk with your doctor before using these medicines.] If you have signs of an infection, an antibiotic will be given. Take it as directed. Follow-Up as directed with a dentist. Your pain may go away with the treatment given. However, only a dentist can fully evaluate and treat the cause and prevent the pain from coming back again. TOOTHACHE IS A SIGN OF DISEASE IN YOUR TOOTH AND SHOULD BE EXAMINED AND TREATED BY A DENTIST. Get Prompt Medical Attention if any of the following occur: Your face becomes swollen or red Pain worsens or spreads to the neck Fever over 100.4 F (38.0 C) Unusual drowsiness; headache or stiff neck; weakness or fainting Pus drains from the tooth Difficulty swallowing or breathing Ketorolac Tromethamine Oral tablet What is this medicine? KETOROLAC (deedee toe ROLE ak) is a non-steroidal anti-inflammatory drug (NSAID). It is used for a short while to treat moderate to severe pain, including pain after surgery. It should not be used for more than 5 days. How should I use this medicine? Take this medicine by mouth with a full glass of water. Follow the directions on the prescription label. Take your medicine at regular intervals. Do not take your medicine more often than directed. Do not take more than the recommended dose. A special MedGuide will be given to you by the pharmacist with each prescription and refill. Be sure to read this information carefully each time. Talk to your sale professional digital marketing regarding the use of this medicine in children. While this drug may be prescribed for children as young as 16 years of age for selected conditions, precautions do apply. Patients over 65 years old may have a stronger reaction and need a smaller dose. What side effects may I notice from receiving this medicine? Side effects that you should report to your doctor or health intensive care specialist as soon as possible: allergic reactions like skin rash, itching or hives, swelling of the face, lips, or tongue black or tarry stools breathing problems changes in vision chest pain high blood pressure nausea or vomiting redness, blistering, peeling or loosening of the skin, including inside the mouth severe abdominal pain slurred speech or weakness on one side of the body unexplained weight gain or swelling unusual bleeding or bruising unusually weak or tired yellowing of eyes or skin Side effects that usually do not require medical attention (report to your doctor or health intensive care specialist if they continue or are bothersome): diarrhea dizziness headache heartburn What may interact with this medicine? Do not take this medicine with any of the following medications: aspirin and aspirin-like medicines cidofovir methotrexate NSAIDs, medicines for pain and inflammation, like ibuprofen or naproxen pemetrexed probenecid This medicine may also interact with the following medications: alcohol alendronate alprazolam carbamazepine cyclosporine diuretics flavocoxid fluoxetine ginkgo lithium medicines for high blood pressure like enalapril medicines that affect platelets like pentoxifylline medicines that treat or prevent blood clots like heparin, warfarin muscle relaxants phenytoin steroid medicines like prednisone or cortisone thiothixene What if I miss a dose? If you miss a dose, take it as soon as you can. If it is almost time for your next dose, take only that dose. Do not take double or extra doses. Where should I keep my medicine? Keep out of the reach of children. Store at room temperature between 20 and 25 degrees C (68 and 77 degrees F). Throw away any unused medicine after the expiration date. What should I tell my health care provider before I take this medicine? They need to know if you have any of these conditions: asthma bleeding problems like hemophilia cigarette smoker drink more than 3 alcohol containing drinks a day heart disease or circulation problems such as heart failure or leg edema (fluid retention) high blood pressure kidney disease liver disease stomach bleeding or ulcers an unusual or allergic reaction to ketorolac, aspirin, other NSAIDs, other medicines, foods, dyes, or preservatives or trying to get breast-feeding What should I watch for while using this medicine? Tell your doctor or health intensive care specialist if your pain does not get better. Talk to your doctor before taking another medicine for pain. Do not treat yourself. This medicine does not prevent heart attack or stroke. In fact, this medicine may increase the chance of a heart attack or stroke. The chance may increase with longer use of this medicine and in people who have heart disease. If you take aspirin to prevent heart attack or stroke, talk with your doctor or health intensive care specialist. Do not take medicines such as ibuprofen and naproxen with this medicine. Side effects such as stomach upset, nausea, or ulcers may be more likely to occur. Many medicines available without a prescription should not be taken with this medicine. This medicine can cause ulcers and bleeding in the stomach and intestines at any time during treatment. Do not smoke cigarettes or drink alcohol. These increase irritation to your stomach and can make it more susceptible to damage from this medicine. Ulcers and bleeding can happen without warning symptoms and can cause . You may get drowsy or dizzy. Do not drive, use machinery, or do anything that needs mental alertness until you know how this medicine affects you. Do not stand or sit up quickly, especially if you are an older patient. This reduces the risk of dizzy or fainting spells. This medicine can cause you to bleed more easily. Try to avoid damage to your teeth and gums when you brush or floss your teeth. You have been given the following additional information: Dental Pain Ketorolac Tromethamine Oral tablet (Electronically signed by Chuy Ruvalcaba MD 11/14/2016 9:31)
--- NOTE | 2016-11-14 09:32 | ED MED RECONCILIATION SUMMARY ---
Patient: JAILENE HUDSON Medication Reconciliation Report [facility] VisitID: [id number] [address] [place] [address] 31y, M Registration Date/Time: 11/06/2016 Weight: 98.4 kg Height/Length: 67 in. BMI: 34.0 ALLERGIES: Demerol The patient's Home Medications are listed below: STOP TAKING THE FOLLOWING MEDICATIONS: Ibuprofen Oral CONTINUE TAKING THE FOLLOWING MEDICATIONS: Acetaminophen Extra Strength Oral Tramadol HCL Oral The source(s) of the original Home Medication information: Not obtained. The following Medications were given to the patient in the Emergency Department: None. The following Medications were prescribed to the patient: Toradol 10 mg tablets: Take 1 tablet orally every 6 hours as needed. Dispense fifteen (15). No refills. Substitution is permissible. -- Chuy Ruvalcaba MD
--- NOTE | 2016-11-14 09:32 | ED DISCHARGE INSTRUCTIONS ---
Patient: JAILENE HUDSON General Instructions [facility] VisitID: [id number] [place] [address] 31y, M Registration Date/Time: 11/06/2016 Dental pain with an impacted tooth. INSTRUCTIONS Drink plenty of fluids. Warnings: Further evaluation is necessary. GENERAL WARNINGS: Return or contact your physician immediately if your condition worsens or changes unexpectedly, if not improving as expected, or if other problems arise. Your Current Medications: STOP TAKING THE FOLLOWING MEDICATIONS: Ibuprofen Oral. CONTINUE TAKING THE FOLLOWING MEDICATIONS: Acetaminophen Extra Strength Oral. Tramadol HCL Oral. Prescription Medications: Toradol 10 mg tablets: Take 1 tablet orally every 6 hours as needed. Dispense fifteen (15). No refills. Substitution is permissible. Follow-up: Follow up with a dentist as scheduled. ADDITIONAL INFORMATION Dental Pain A crack or cavity in the tooth, which exposes the sensitive inner area of the tooth can cause tooth pain. An infection in the gum or the root of the tooth can cause pain and swelling. The pain is often made worse by drinking hot or cold fluids, or biting on hard foods. Pain may spread from the tooth to the ear or jaw on the same side. Home Care: Avoid hot and cold foods and liquids since your tooth may be sensitive to temperature changes. If your tooth is chipped or cracked, or if there is a large open cavity, apply OIL OF CLOVES (available [id number] in drug stores) directly to the tooth to reduce pain. Some pharmacies carry an edfr-bob-ykdolko "toothache kit." This contains a paste, which can be applied over the exposed tooth to decrease sensitivity. A cold pack on your jaw over the sore area may help reduce pain. You may use acetaminophen (Tylenol) or ibuprofen (Motrin, Advil) to control pain, unless another medicine was prescribed. [ NOTE: If you have chronic liver or kidney disease or ever had a stomach ulcer or GI bleeding, talk with your doctor before using these medicines.] If you have signs of an infection, an antibiotic will be given. Take it as directed. Follow-Up as directed with a dentist. Your pain may go away with the treatment given. However, only a dentist can fully evaluate and treat the cause and prevent the pain from coming back again. TOOTHACHE IS A SIGN OF DISEASE IN YOUR TOOTH AND SHOULD BE EXAMINED AND TREATED BY A DENTIST. Get Prompt Medical Attention if any of the following occur: Your face becomes swollen or red Pain worsens or spreads to the neck Fever over 100.4 F (38.0 C) Unusual drowsiness; headache or stiff neck; weakness or fainting Pus drains from the tooth Difficulty swallowing or breathing Ketorolac Tromethamine Oral tablet What is this medicine? KETOROLAC (deedee toe ROLE ak) is a non-steroidal anti-inflammatory drug (NSAID). It is used for a short while to treat moderate to severe pain, including pain after surgery. It should not be used for more than 5 days. How should I use this medicine? Take this medicine by mouth with a full glass of water. Follow the directions on the prescription label. Take your medicine at regular intervals. Do not take your medicine more often than directed. Do not take more than the recommended dose. A special MedGuide will be given to you by the pharmacist with each prescription and refill. Be sure to read this information carefully each time. Talk to your data recovery planner regarding the use of this medicine in children. While this drug may be prescribed for children as young as 16 years of age for selected conditions, precautions do apply. Patients over 65 years old may have a stronger reaction and need a smaller dose. What side effects may I notice from receiving this medicine? Side effects that you should report to your doctor or health clinical care leader as soon as possible: allergic reactions like skin rash, itching or hives, swelling of the face, lips, or tongue black or tarry stools breathing problems changes in vision chest pain high blood pressure nausea or vomiting redness, blistering, peeling or loosening of the skin, including inside the mouth severe abdominal pain slurred speech or weakness on one side of the body unexplained weight gain or swelling unusual bleeding or bruising unusually weak or tired yellowing of eyes or skin Side effects that usually do not require medical attention (report to your doctor or health clinical care leader if they continue or are bothersome): diarrhea dizziness headache heartburn What may interact with this medicine? Do not take this medicine with any of the following medications: aspirin and aspirin-like medicines cidofovir methotrexate NSAIDs, medicines for pain and inflammation, like ibuprofen or naproxen pemetrexed probenecid This medicine may also interact with the following medications: alcohol alendronate alprazolam carbamazepine cyclosporine diuretics flavocoxid fluoxetine ginkgo lithium medicines for high blood pressure like enalapril medicines that affect platelets like pentoxifylline medicines that treat or prevent blood clots like heparin, warfarin muscle relaxants phenytoin steroid medicines like prednisone or cortisone thiothixene What if I miss a dose? If you miss a dose, take it as soon as you can. If it is almost time for your next dose, take only that dose. Do not take double or extra doses. Where should I keep my medicine? Keep out of the reach of children. Store at room temperature between 20 and 25 degrees C (68 and 77 degrees F). Throw away any unused medicine after the expiration date. What should I tell my health care provider before I take this medicine? They need to know if you have any of these conditions: asthma bleeding problems like hemophilia cigarette smoker drink more than 3 alcohol containing drinks a day heart disease or circulation problems such as heart failure or leg edema (fluid retention) high blood pressure kidney disease liver disease stomach bleeding or ulcers an unusual or allergic reaction to ketorolac, aspirin, other NSAIDs, other medicines, foods, dyes, or preservatives or trying to get breast-feeding What should I watch for while using this medicine? Tell your doctor or health clinical care leader if your pain does not get better. Talk to your doctor before taking another medicine for pain. Do not treat yourself. This medicine does not prevent heart attack or stroke. In fact, this medicine may increase the chance of a heart attack or stroke. The chance may increase with longer use of this medicine and in people who have heart disease. If you take aspirin to prevent heart attack or stroke, talk with your doctor or health clinical care leader. Do not take medicines such as ibuprofen and naproxen with this medicine. Side effects such as stomach upset, nausea, or ulcers may be more likely to occur. Many medicines available without a prescription should not be taken with this medicine. This medicine can cause ulcers and bleeding in the stomach and intestines at any time during treatment. Do not smoke cigarettes or drink alcohol. These increase irritation to your stomach and can make it more susceptible to damage from this medicine. Ulcers and bleeding can happen without warning symptoms and can cause . You may get drowsy or dizzy. Do not drive, use machinery, or do anything that needs mental alertness until you know how this medicine affects you. Do not stand or sit up quickly, especially if you are an older patient. This reduces the risk of dizzy or fainting spells. This medicine can cause you to bleed more easily. Try to avoid damage to your teeth and gums when you brush or floss your teeth. You have been given the following additional information: Dental Pain Ketorolac Tromethamine Oral tablet (Electronically signed by Chuy Ruvalcaba MD 11/14/2016 9:31)
--- NOTE | 2016-11-14 09:32 | ED MAR SUMMARY ---
..... Medication Administration Record [facility] [address] [place], [place] [id number] Patient: JAILENE HUDSON Visit ID: [id number] 31y, M Weight: 98.4 kg Height/Length: 67 in BMI: 34 ALLERGIES: Demerol
--- NOTE | 2016-11-14 09:32 | ED MAR SUMMARY ---
..... Medication Administration Record [facility] [address] [place], [place] [id number] Patient: JAILENE HUDSON Visit ID: [id number] 31y, M Weight: 98.4 kg Height/Length: 67 in BMI: 34 ALLERGIES: Demerol
--- NOTE | 2016-11-14 09:32 | ED MED RECONCILIATION SUMMARY ---
Patient: JAILENE HUDSON Medication Reconciliation Report [facility] VisitID: [id number] [address] [place] [address] 31y, M Registration Date/Time: 11/06/2016 Weight: 98.4 kg Height/Length: 67 in. BMI: 34.0 ALLERGIES: Demerol The patient's Home Medications are listed below: STOP TAKING THE FOLLOWING MEDICATIONS: Ibuprofen Oral CONTINUE TAKING THE FOLLOWING MEDICATIONS: Acetaminophen Extra Strength Oral Tramadol HCL Oral The source(s) of the original Home Medication information: Not obtained. The following Medications were given to the patient in the Emergency Department: None. The following Medications were prescribed to the patient: Toradol 10 mg tablets: Take 1 tablet orally every 6 hours as needed. Dispense fifteen (15). No refills. Substitution is permissible. -- Chuy Ruvalcaba MD
== END 2016-11-06 12:50 | disposition home or self-care (01) ==
LOC: ED SRH 10:36
DX: K01.1 Impacted teeth (principal); K08.89 Other specified disorders of teeth and supporting structures; Z72.0 Tobacco use